=== PATIENT | male | born 1960 | race Caucasian/White ===

== ENCOUNTER 2018-02-13 09:49 | Inpatient (IN) | payer OTHER ==
[2018-02-13 11:12] VITALS: BMI 22.3
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
[2018-02-13] MEDS ORDERED: P-EPHED 60MG/TRIPROLIDI 2.5MG TABLET PO PRN (13:26)
[2018-02-13] MEDS ORDERED: MAGNESIUM HYDROX 2400MG/30ML ORAL SUSPENSION 30 ML CUP PO PRN (13:26)
[2018-02-13] MEDS ORDERED: ACETAMINOPHEN 325 MG TABLET (FP) PO PRN (13:26)
[2018-02-13] MEDS ORDERED: MAGNESIUM CITRATE 300 ML BOTTLE PO PRN (13:26)
[2018-02-13] MEDS ORDERED: IBUPROFEN 400 MG TABLET (FP) PO PRN (13:26)
[2018-02-13] MEDS ORDERED: MENTHOL/PHENOL 1 EACH UD MM PRN (13:26)
[2018-02-13] MEDS ORDERED: guaiFENesin/D-METHORPHAN HB 10 ML UNIT-DOSE CUPS PO PRN (13:26)
[2018-02-13] MEDS ORDERED: LOPERAMIDE HCL 2 MG CAPSULE PO PRN (13:26)
[2018-02-13] MEDS ORDERED: MAG HYDROX/AL HYDROX/SIMETH 30 ML UNIT-DOSE CUP PO PRN (13:26)
[2018-02-13] MEDS ORDERED: sitaGLIPtin PHOSPHATE 25 MG TABLET (FP) PO ONE (15:14)
[2018-02-13] MEDS: chlordiazePOXIDE HCL 10 MG CAPSULE PO PRN (15:27)
[2018-02-13] MEDS: BACITRACIN/POLYMYXIN B SULFATE 15 GM TUBE TP SCH ×2 (15:28→22:23)
--- NOTE | 2018-02-13 15:44 | EKG ---
Test Reason : Blood Pressure : / mmHG Vent. Rate : 051 BPM Atrial Rate : 051 BPM P-R Int : 132 ms QRS Dur : 086 ms QT Int : 434 ms P-R-T Axes : 101 -04 002 degrees QTc Int : 400 ms SINUS BRADYCARDIA MINIMAL VOLTAGE CRITERIA FOR LVH, MAY BE NORMAL VARIANT NONSPECIFIC T WAVE ABNORMALITY ABNORMAL ECG NO PREVIOUS ECGS AVAILABLE Confirmed by CARISSA GOMEZ MD ([id number]) on 02/13/2018 3:44:38 PM Referred By: Confirmed By:CARISSA GOMEZ MD
--- NOTE | 2018-02-13 16:03 | CONSULT ---
[facility] Psychiatric Consult - Data Date of interview: 02/13/18 Admission source: [facility] Identifying data: Patient is a 58 year old single male, without children, unemployed, domiciled, and is supported by SSI benefits. This is one of multiple admissions for patient. Patient admitted to for alcohol and benzodiazepine dependence. Substance Abuse History: - Smoking Cessation. Smoking history: Current every day smoker. Have you smoked in the past 12 months: Yes. Aproximately how many cigarettes per day: 5. Hx Chewing Tobacco Use: No. Initiated information on smoking cessation: No. - Substances Abused. Alcohol-rum. Route: Oral. Frequency: Daily. Amount used: 1 pt. Age of first use: 18. Date of Last Use: 02/12/18. Xanax. Route: Oral. Frequency: Daily. Amount used: 8 mg. Age of first use: 53. Date of Last Use: 02/12/18 Medical History: diabetes, Hep C Psychiatric History: Patient reports one psychiatric hospitalization at [facility] 15 years ago. Current Outpatient psychiatric care is provided at [facility]. Pharmacy claims reviewed (prescriptions sent on 02/01 + 02/11). Patient is prescribed lexapro 20mg + Buspar 10mg TID + Seroquel 100mg + Ambien 10mg. He reports sub-opitmal adherence to his medication regime. Patient is also enrolled at the methadone program in [facility]. He is on methadone maintenance of 170mg daily. Patient reports one suicide attempt 20 years ago via overdose. He denies current thought or urges to hurt himself. Patient currently reports feeling sad, anxiety, and difficulty sleeping. Physical/Sexual Abuse/Trauma History: denies. Mental Status Exam - Mental Status Exam Alert and Oriented to: Time, Place, Person Cognitive Function: Good Patient Appearance: Well Groomed Mood: Euthymic Affect: Appropriate Patient Behavior: Appropriate, Cooperative Speech Pattern: Appropriate Voice Loudness: Normal Thought Process: Intact, Goal Oriented Thought Disorder: Not Present Hallucinations: Denies Suicidal Ideation: Denies Homicidal Ideation: Denies Insight/Judgement: Poor Sleep: Poorly Appetite: Fair Muscle strength/Tone: Normal Gait/Station: Normal Psychiatric Findings - Problem List ([place] 1, 2,3) (1) Opioid dependence on agonist therapy Current Visit: Yes Status: Acute (2) Sedative, hypnotic or anxiolytic dependence with withdrawal, uncomplicated Current Visit: Yes Status: Acute (3) Alcohol dependence with uncomplicated withdrawal Current Visit: Yes Status: Acute (4) Substance induced mood disorder Current Visit: Yes Status: Acute (5) Substance-induced sleep disorder Current Visit: Yes Status: Acute - Initial Treatment Plan Initial Treatment Plan: Psychoeducation provided. Detoxification in progress. Lexapro 20mg daily + Buspar 10mg BID + Seroquel 50mg (reduce dosage) + Ambien 5mg (reduce dosage). Benefits and side effects discussed. Verbal consent given.
[2018-02-13] MEDS ORDERED: INSULIN (NOVOLOG) ASPART 100 UNITS/ML 10ML VIAL ONE ×2 (16:45→21:55)
[2018-02-13] MEDS: INSULIN SLIDING SCALE (NOVOLOG) 1 VIAL SQ SCH ×2 (17:07→22:23)
[2018-02-13] MEDS ORDERED: MELATONIN 5 MG TABLETS PO PRN (22:00)
[2018-02-13 22:09] LABS: URINE APPEARANCE CLEAR; URINE BILIRUBIN NEGATIVE (<2.0 mg/dL); URINE COLOR YELLOW; URINE GLUCOSE (UA) 3+ (NEGATIVE); URINE KETONE NEGATIVE (NEGATIVE); URINE LEUK ESTERASE 1+ (NEGATIVE); URINE NITRITE NEGATIVE (NEGATIVE); URINE PROTEIN 1+ (NEGATIVE); URINE UROBILINOGEN NEGATIVE mg/dL (0.2-1.0)
[2018-02-13] MEDS: ZOLPIDEM TARTRATE 5 MG TABLET PO PRN (22:22)
[2018-02-13] MEDS: QUEtiapine FUMARATE 50 MG TABLET PO SCH (22:22)
[2018-02-13] MEDS: THIAMINE HCL 100 MG TABLET (FP) PO SCH (22:22)
[2018-02-13] MEDS: chlordiazePOXIDE HCL 25 MG CAPSULE PO SCH (22:22)
[2018-02-13] MEDS: busPIRone HCL 10 MG TABLET (FP) PO SCH (22:23)
[2018-02-13 22:57] LABS: EPI CELLS RARE /HPF (FEW)
[2018-02-14] MEDS ORDERED: METHADONE HCL 10 MG TABLET ONE (04:35)
[2018-02-14] MEDS ORDERED: METHADONE HCL 40 MG DISPERSABLE TABLET ONE (04:36)
[2018-02-14] MEDS: chlordiazePOXIDE HCL 25 MG CAPSULE PO SCH ×4 (05:30→22:22)
[2018-02-14] MEDS: METHADONE 160 MG, METHADONE 10 MG PO SCH (05:31)
[2018-02-14] MEDS ORDERED: METHADONE HCL 40 MG DISPERSABLE TABLET PO SCH (06:00)
[2018-02-14] MEDS: sitaGLIPtin PHOSPHATE 25 MG TABLET (FP) PO SCH (06:17)
[2018-02-14] MEDS: INSULIN SLIDING SCALE (NOVOLOG) 1 VIAL SQ SCH ×4 (06:17→21:56)
[2018-02-14] MEDS ORDERED: ESCITALOPRAM OXALATE 10 MG TABLET (FP) PO SCH (10:00)
[2018-02-14] MEDS: BACITRACIN/POLYMYXIN B SULFATE 15 GM TUBE TP SCH ×2 (10:11→22:21)
[2018-02-14] MEDS: NICOTINE 7 MG/24 HOURS TOPICAL PATCH TD SCH (10:11)
[2018-02-14] MEDS: ESCITALOPRAM OXALATE 10 MG TABLET (FP) PO SCH (10:11)
[2018-02-14] MEDS: PRENATAL VITAMINS W/ FOLIC ACID TABLET (FP) PO SCH (10:11)
[2018-02-14] MEDS: busPIRone HCL 10 MG TABLET (FP) PO SCH ×2 (10:11→22:22)
[2018-02-14 11:21] LABS: HEMOGLOBIN 10.3 GM/dL (11.7-16.9); MCH 31.3 pg (25.7-33.7); MCHC 33.1 g/dl (32.0-35.9); MEAN CELL VOLUME 94.6 fl (80-96); MEAN PLT VOLUME 9.1 fl (7.5-11.1); PLATELET COUNT 161 K/MM3 (134-434); RBC 3.28 M/mm3 (4.00-5.60); RDW 13.8 % (11.9-15.9); WHITE BLOOD COUNT 7.8 K/mm3 (4.0-10.0)
--- NOTE | 2018-02-14 11:21 | PN ---
S CIWA - CIWA Score Nausea/Vomitin Muscle Tremors: 3 Anxiety: 2 Agitation: 2 Paroxysmal Sweats: 3 Orientation: 0-Oriented Tacttile Disturbances: 2-Mild Itch/Numbness/Burn Auditory Disturbances: 0-None Visual Disturbances: 0-None Headache: 2-Mild CIWA-Ar Total Score: 17 BHS Progress Note (SOAP) Subjective: Muscle aches, tremors,interrupted sleep Objective: 02/14/18 11:20 Vital Signs - 8 hr 02/14/18 02/14/18 03:30 06:21 Temperature 97.8 F Pulse Rate 59 L Respiratory 18 16 Rate Blood Pressure 143/72 Laboratory Last Values POC Glucometer 165 UNITS (80-120) 02/14/18 05:32 Urine Color Yellow 02/13/18 15:26 Urine Appearance Clear 02/13/18 15:26 Urine pH 5.0 (5.0-8.0) D 02/13/18 15:26 Ur Specific [place] 1.013 (1.001-1.035) 02/13/18 15:26 Urine Protein 1+ (NEGATIVE) H 02/13/18 15:26 Urine Glucose (UA) 3+ (NEGATIVE) H 02/13/18 15:26 Urine Ketones Negative (NEGATIVE) 02/13/18 15:26 Urine Blood Negative (NEGATIVE) 02/13/18 15:26 Urine Nitrite Negative (NEGATIVE) 02/13/18 15:26 Urine Bilirubin Negative (<2.0 mg/dL) 02/13/18 15:26 Urine Urobilinogen Negative mg/dL (0.2-1.0) 02/13/18 15:26 Ur Leukocyte Esterase 1+ (NEGATIVE) H 02/13/18 15:26 Urine WBC (Auto) 33 /hpf (3-5) 02/13/18 15:26 Urine RBC (Auto) 4 /hpf (0-3) 02/13/18 15:26 Ur Epithelial Cells Rare /HPF (FEW) 02/13/18 15:26 HIV 1&2 Antibody Screen Negative 02/13/18 12:15 HIV P24 Antigen Negative 02/13/18 12:15 UA noted Labs pending Assessment: 02/14/18 11:20 Withdrawal sx Plan: Continue detox
[2018-02-14 11:35] LABS: ALBUMIN 3.5 g/dl (3.4-5.0); ALK PHOS 97 U/L (45-117); ANION GAP 4 MMOL/L (8-16); BILIRUBIN,TOTAL 0.4 mg/dL (0.2-1); BLOOD UREA NITROGEN 26 mg/dL (7-18); CHLORIDE 107 mmol/L (98-107); CO2 29 mmol/L (21-32); CREATININE 1.9 mg/dL (0.55-1.3); GLUCOSE,RANDOM 279 mg/dL (74-106); POTASSIUM 4.6 mmol/L (3.5-5.1); SGOT/AST 29 U/L (15-37); SGPT/ALT 33 U/L (13-61); SODIUM 140 mmol/L (136-145)
[2018-02-14] MEDS ORDERED: INSULIN (NOVOLOG) ASPART 100 UNITS/ML 10ML VIAL ONE ×2 (11:59→16:45)
[2018-02-14] MEDS: chlordiazePOXIDE HCL 10 MG CAPSULE PO PRN (14:37)
[2018-02-14] MEDS: THIAMINE HCL 100 MG TABLET (FP) PO SCH (22:21)
[2018-02-14] MEDS: QUEtiapine FUMARATE 50 MG TABLET PO SCH (22:22)
[2018-02-15] MEDS ORDERED: METHADONE HCL 10 MG TABLET ONE (04:10)
[2018-02-15] MEDS ORDERED: METHADONE HCL 40 MG DISPERSABLE TABLET ONE (04:11)
[2018-02-15] MEDS: hydrOXYzine PAMOATE 25 MG CAPSULE (FP) PO PRN (04:28)
[2018-02-15] MEDS: chlordiazePOXIDE HCL 25 MG CAPSULE PO SCH ×3 (05:16→17:02)
[2018-02-15] MEDS: METHADONE 160 MG, METHADONE 10 MG PO SCH (05:16)
[2018-02-15] MEDS: INSULIN SLIDING SCALE (NOVOLOG) 1 VIAL SQ SCH ×4 (07:10→22:06)
[2018-02-15] MEDS: sitaGLIPtin PHOSPHATE 25 MG TABLET (FP) PO SCH (07:10)
[2018-02-15] MEDS ORDERED: INSULIN (NOVOLOG) ASPART 100 UNITS/ML 10ML VIAL ONE ×4 (07:18→21:50)
[2018-02-15] MEDS: BACITRACIN/POLYMYXIN B SULFATE 15 GM TUBE TP SCH ×2 (10:05→22:06)
[2018-02-15] MEDS: busPIRone HCL 10 MG TABLET (FP) PO SCH ×2 (10:05→22:06)
[2018-02-15] MEDS: ESCITALOPRAM OXALATE 10 MG TABLET (FP) PO SCH (10:05)
[2018-02-15] MEDS: PRENATAL VITAMINS W/ FOLIC ACID TABLET (FP) PO SCH (10:06)
[2018-02-15] MEDS: NICOTINE 7 MG/24 HOURS TOPICAL PATCH TD SCH (10:06)
--- NOTE | 2018-02-15 16:27 | PN ---
S CIWA - CIWA Score Nausea/Vomitin Muscle Tremors: 4-Moderate,w/Arms Extend Anxiety: 4-Mod. Anxious/Guarded Agitation: 4-Moderately Restless Paroxysmal Sweats: 3 Orientation: 0-Oriented Tacttile Disturbances: 0-None Auditory Disturbances: 0-None Visual Disturbances: 0-None Headache: 1-Very Mild CIWA-Ar Total Score: 18 BHS Progress Note (SOAP) Subjective: Tremor, interrupted sleep, anxious Objective: 02/15/18 16:22 Last Vital Signs Temp Pulse Resp BP Pulse Ox 97.0 F L 56 L 18 120/68 02/15/18 14:54 02/15/18 14:54 02/15/18 14:54 02/15/18 14:54 Laboratory Tests 02/13/18 02/13/18 02/13/18 12:11 12:15 15:26 WBC RBC Hgb Hct MCV MCH MCHC RDW Plt Count MPV Sodium Potassium Chloride Carbon Dioxide Anion Gap BUN Creatinine Creat Clearance w eGFR POC Glucometer 278 Random Glucose Calcium Total Bilirubin AST ALT Alkaline Phosphatase Total Protein Albumin Urine Color Yellow Urine Appearance Clear Urine pH 5.0 D Ur Specific [place] 1.013 Urine Protein 1+ H Urine Glucose (UA) 3+ H Urine Ketones Negative Urine Blood Negative Urine Nitrite Negative Urine Bilirubin Negative Urine Urobilinogen Negative Ur Leukocyte Esterase 1+ H Urine WBC (Auto) 33 Urine RBC (Auto) 4 Ur Epithelial Cells Rare RPR Titer HIV 1&2 Antibody Screen Negative HIV P24 Antigen Negative 02/13/18 02/13/18 02/14/18 16:24 21:41 05:32 WBC RBC Hgb Hct MCV MCH MCHC RDW Plt Count MPV Sodium Potassium Chloride Carbon Dioxide Anion Gap BUN Creatinine Creat Clearance w eGFR POC Glucometer 237 277 165 Random Glucose Calcium Total Bilirubin AST ALT Alkaline Phosphatase Total Protein Albumin Urine Color Urine Appearance Urine pH Ur Specific [place] Urine Protein Urine Glucose (UA) Urine Ketones Urine Blood Urine Nitrite Urine Bilirubin Urine Urobilinogen Ur Leukocyte Esterase Urine WBC (Auto) Urine RBC (Auto) Ur Epithelial Cells RPR Titer HIV 1&2 Antibody Screen HIV P24 Antigen 02/14/18 02/14/18 02/14/18 06:00 06:00 06:00 WBC 7.8 RBC 3.28 L Hgb 10.3 L Hct 31.0 L D MCV 94.6 MCH 31.3 MCHC 33.1 RDW 13.8 Plt Count 161 D MPV 9.1 Sodium 140 Potassium 4.6 Chloride 107 Carbon Dioxide 29 Anion Gap 4 L BUN 26 H Creatinine 1.9 H Creat Clearance w eGFR 36.59 POC Glucometer Random Glucose 279 H Calcium 9.0 Total Bilirubin 0.4 AST 29 ALT 33 Alkaline Phosphatase 97 Total Protein 7.0 Albumin 3.5 Urine Color Urine Appearance Urine pH Ur Specific [place] Urine Protein Urine Glucose (UA) Urine Ketones Urine Blood Urine Nitrite Urine Bilirubin Urine Urobilinogen Ur Leukocyte Esterase Urine WBC (Auto) Urine RBC (Auto) Ur Epithelial Cells RPR Titer Nonreactive HIV 1&2 Antibody Screen HIV P24 Antigen 02/14/18 02/14/18 02/14/18 11:53 16:21 21:46 WBC RBC Hgb Hct MCV MCH MCHC RDW Plt Count MPV Sodium Potassium Chloride Carbon Dioxide Anion Gap BUN Creatinine Creat Clearance w eGFR POC Glucometer 348 348 125 Random Glucose Calcium Total Bilirubin AST ALT Alkaline Phosphatase Total Protein Albumin Urine Color Urine Appearance Urine pH Ur Specific [place] Urine Protein Urine Glucose (UA) Urine Ketones Urine Blood Urine Nitrite Urine Bilirubin Urine Urobilinogen Ur Leukocyte Esterase Urine WBC (Auto) Urine RBC (Auto) Ur Epithelial Cells RPR Titer HIV 1&2 Antibody Screen HIV P24 Antigen 02/15/18 02/15/18 05:18 11:46 WBC RBC Hgb Hct MCV MCH MCHC RDW Plt Count MPV Sodium Potassium Chloride Carbon Dioxide Anion Gap BUN Creatinine Creat Clearance w eGFR POC Glucometer 203 298 Random Glucose Calcium Total Bilirubin AST ALT Alkaline Phosphatase Total Protein Albumin Urine Color Urine Appearance Urine pH Ur Specific [place] Urine Protein Urine Glucose (UA) Urine Ketones Urine Blood Urine Nitrite Urine Bilirubin Urine Urobilinogen Ur Leukocyte Esterase Urine WBC (Auto) Urine RBC (Auto) Ur Epithelial Cells RPR Titer HIV 1&2 Antibody Screen HIV P24 Antigen Labs reviewed: hyperglycemia, bun 26, creatinine 1.9, abnormal UA Assessment: 02/15/18 16:25 Withdrawal sx Noted with RAAD, abnormal UA and hyperglycemia Plan: Continue detox RAAD: encouraged PO water intake, repeat BMP Abnormal UA: repeat UA Hyperglycemia r/t DMT2: increase januvia to 50mg PO daily, encourage adherence to diabetic diet and medication
[2018-02-15] MEDS: ZOLPIDEM TARTRATE 5 MG TABLET PO PRN (22:06)
[2018-02-15] MEDS: chlordiazePOXIDE 5 MG CAPSULE PO SCH (22:06)
[2018-02-15] MEDS: QUEtiapine FUMARATE 50 MG TABLET PO SCH (22:06)
[2018-02-15] MEDS: THIAMINE HCL 100 MG TABLET (FP) PO SCH (22:06)
[2018-02-15] MEDS: chlordiazePOXIDE HCL 10 MG CAPSULE PO PRN (23:49)
[2018-02-16] MEDS: hydrOXYzine PAMOATE 25 MG CAPSULE (FP) PO PRN ×2 (03:34→12:41)
[2018-02-16] MEDS ORDERED: METHADONE HCL 10 MG TABLET ONE (04:45)
[2018-02-16] MEDS ORDERED: METHADONE HCL 40 MG DISPERSABLE TABLET ONE (04:45)
[2018-02-16] MEDS: METHADONE 160 MG, METHADONE 10 MG PO SCH (05:14)
[2018-02-16] MEDS: chlordiazePOXIDE 5 MG CAPSULE PO SCH ×3 (05:15→17:30)
[2018-02-16] MEDS ORDERED: INSULIN (NOVOLOG) ASPART 100 UNITS/ML 10ML VIAL ONE ×3 (07:01→17:05)
[2018-02-16] MEDS: INSULIN SLIDING SCALE (NOVOLOG) 1 VIAL SQ SCH ×4 (07:02→21:50)
[2018-02-16] MEDS: sitaGLIPtin PHOSPHATE 50 MG TABLET PO SCH (07:51)
[2018-02-16] MEDS: BACITRACIN/POLYMYXIN B SULFATE 15 GM TUBE TP SCH ×2 (10:08→22:18)
[2018-02-16] MEDS: ESCITALOPRAM OXALATE 10 MG TABLET (FP) PO SCH (10:08)
[2018-02-16] MEDS: NICOTINE 7 MG/24 HOURS TOPICAL PATCH TD SCH (10:09)
[2018-02-16] MEDS: PRENATAL VITAMINS W/ FOLIC ACID TABLET (FP) PO SCH (10:09)
[2018-02-16] MEDS: busPIRone HCL 10 MG TABLET (FP) PO SCH ×2 (10:09→22:17)
[2018-02-16 10:35] LABS: ANION GAP 9 MMOL/L (8-16); BLOOD UREA NITROGEN 31 mg/dL (7-18); CALCIUM 9.5 mg/dL (8.5-10.1); CHLORIDE 106 mmol/L (98-107); CO2 27 mmol/L (21-32); CREATININE 1.6 mg/dL (0.55-1.3); GLUCOSE,RANDOM 212 mg/dL (74-106); POTASSIUM 4.6 mmol/L (3.5-5.1); SODIUM 142 mmol/L (136-145)
--- NOTE | 2018-02-16 12:04 | PN ---
BHS Progress Note (SOAP) Subjective: Interrupted sleep, tremor, chills Objective: 02/16/18 11:48 Last Vital Signs Temp Pulse Resp BP Pulse Ox 97.6 F 68 18 100/68 02/16/18 09:42 02/16/18 09:42 02/16/18 09:42 02/16/18 09:42 Laboratory Tests 02/13/18 02/13/18 02/13/18 12:11 12:15 15:26 WBC RBC Hgb Hct MCV MCH MCHC RDW Plt Count MPV Sodium Potassium Chloride Carbon Dioxide Anion Gap BUN Creatinine Creat Clearance w eGFR POC Glucometer 278 Random Glucose Calcium Total Bilirubin AST ALT Alkaline Phosphatase Total Protein Albumin Urine Color Yellow Urine Appearance Clear Urine pH 5.0 D Ur Specific [place] 1.013 Urine Protein 1+ H Urine Glucose (UA) 3+ H Urine Ketones Negative Urine Blood Negative Urine Nitrite Negative Urine Bilirubin Negative Urine Urobilinogen Negative Ur Leukocyte Esterase 1+ H Urine WBC (Auto) 33 Urine RBC (Auto) 4 Ur Epithelial Cells Rare RPR Titer HIV 1&2 Antibody Screen Negative HIV P24 Antigen Negative 02/13/18 02/13/18 02/14/18 16:24 21:41 05:32 WBC RBC Hgb Hct MCV MCH MCHC RDW Plt Count MPV Sodium Potassium Chloride Carbon Dioxide Anion Gap BUN Creatinine Creat Clearance w eGFR POC Glucometer 237 277 165 Random Glucose Calcium Total Bilirubin AST ALT Alkaline Phosphatase Total Protein Albumin Urine Color Urine Appearance Urine pH Ur Specific [place] Urine Protein Urine Glucose (UA) Urine Ketones Urine Blood Urine Nitrite Urine Bilirubin Urine Urobilinogen Ur Leukocyte Esterase Urine WBC (Auto) Urine RBC (Auto) Ur Epithelial Cells RPR Titer HIV 1&2 Antibody Screen HIV P24 Antigen 02/14/18 02/14/18 02/14/18 06:00 06:00 06:00 WBC 7.8 RBC 3.28 L Hgb 10.3 L Hct 31.0 L D MCV 94.6 MCH 31.3 MCHC 33.1 RDW 13.8 Plt Count 161 D MPV 9.1 Sodium 140 Potassium 4.6 Chloride 107 Carbon Dioxide 29 Anion Gap 4 L BUN 26 H Creatinine 1.9 H Creat Clearance w eGFR 36.59 POC Glucometer Random Glucose 279 H Calcium 9.0 Total Bilirubin 0.4 AST 29 ALT 33 Alkaline Phosphatase 97 Total Protein 7.0 Albumin 3.5 Urine Color Urine Appearance Urine pH Ur Specific [place] Urine Protein Urine Glucose (UA) Urine Ketones Urine Blood Urine Nitrite Urine Bilirubin Urine Urobilinogen Ur Leukocyte Esterase Urine WBC (Auto) Urine RBC (Auto) Ur Epithelial Cells RPR Titer Nonreactive HIV 1&2 Antibody Screen HIV P24 Antigen 02/14/18 02/14/18 02/14/18 11:53 16:21 21:46 WBC RBC Hgb Hct MCV MCH MCHC RDW Plt Count MPV Sodium Potassium Chloride Carbon Dioxide Anion Gap BUN Creatinine Creat Clearance w eGFR POC Glucometer 348 348 125 Random Glucose Calcium Total Bilirubin AST ALT Alkaline Phosphatase Total Protein Albumin Urine Color Urine Appearance Urine pH Ur Specific [place] Urine Protein Urine Glucose (UA) Urine Ketones Urine Blood Urine Nitrite Urine Bilirubin Urine Urobilinogen Ur Leukocyte Esterase Urine WBC (Auto) Urine RBC (Auto) Ur Epithelial Cells RPR Titer HIV 1&2 Antibody Screen HIV P24 Antigen 02/15/18 02/15/18 02/15/18 05:18 11:46 16:22 WBC RBC Hgb Hct MCV MCH MCHC RDW Plt Count MPV Sodium Potassium Chloride Carbon Dioxide Anion Gap BUN Creatinine Creat Clearance w eGFR POC Glucometer 203 298 342 Random Glucose Calcium Total Bilirubin AST ALT Alkaline Phosphatase Total Protein Albumin Urine Color Urine Appearance Urine pH Ur Specific [place] Urine Protein Urine Glucose (UA) Urine Ketones Urine Blood Urine Nitrite Urine Bilirubin Urine Urobilinogen Ur Leukocyte Esterase Urine WBC (Auto) Urine RBC (Auto) Ur Epithelial Cells RPR Titer HIV 1&2 Antibody Screen HIV P24 Antigen 02/15/18 02/16/18 02/16/18 21:22 06:59 07:00 WBC RBC Hgb Hct MCV MCH MCHC RDW Plt Count MPV Sodium 142 Potassium 4.6 Chloride 106 Carbon Dioxide 27 Anion Gap 9 BUN 31 H Creatinine 1.6 H Creat Clearance w eGFR 44.62 POC Glucometer 210 237 Random Glucose 212 H Calcium 9.5 Total Bilirubin AST ALT Alkaline Phosphatase Total Protein Albumin Urine Color Urine Appearance Urine pH Ur Specific [place] Urine Protein Urine Glucose (UA) Urine Ketones Urine Blood Urine Nitrite Urine Bilirubin Urine Urobilinogen Ur Leukocyte Esterase Urine WBC (Auto) Urine RBC (Auto) Ur Epithelial Cells RPR Titer HIV 1&2 Antibody Screen HIV P24 Antigen 02/16/18 11:01 WBC RBC Hgb Hct MCV MCH MCHC RDW Plt Count MPV Sodium Potassium Chloride Carbon Dioxide Anion Gap BUN Creatinine Creat Clearance w eGFR POC Glucometer 263 Random Glucose Calcium Total Bilirubin AST ALT Alkaline Phosphatase Total Protein Albumin Urine Color Urine Appearance Urine pH Ur Specific [place] Urine Protein Urine Glucose (UA) Urine Ketones Urine Blood Urine Nitrite Urine Bilirubin Urine Urobilinogen Ur Leukocyte Esterase Urine WBC (Auto) Urine RBC (Auto) Ur Epithelial Cells RPR Titer HIV 1&2 Antibody Screen HIV P24 Antigen Labs reviewed: serum creatinine 1.6, bun 31, increased glucose, abnormal UA Assessment: 02/16/18 12:04 Withdrawal sx Noted with RAAD, hyperglycemia r/t DMT2 and abnormal UA Plan: Continue detox RAAD:encouraged PO water intake, monitor kidney function Hyperglycemia r/t DMT2: continue present regimen, continue to monitor Abnormal UA: encouraged to drink more water, follow up on repeated UA result
[2018-02-16] MEDS: THIAMINE HCL 100 MG TABLET (FP) PO SCH (22:17)
[2018-02-16] MEDS: chlordiazePOXIDE HCL 10 MG CAPSULE PO SCH (22:17)
[2018-02-16] MEDS: QUEtiapine FUMARATE 50 MG TABLET PO SCH (22:17)
[2018-02-17] MEDS: hydrOXYzine PAMOATE 25 MG CAPSULE (FP) PO PRN (00:50)
[2018-02-17] MEDS ORDERED: METHADONE HCL 10 MG TABLET ONE (04:12)
[2018-02-17] MEDS ORDERED: METHADONE HCL 40 MG DISPERSABLE TABLET ONE (04:13)
[2018-02-17] MEDS: METHADONE 160 MG, METHADONE 10 MG PO SCH (05:25)
[2018-02-17] MEDS: chlordiazePOXIDE HCL 10 MG CAPSULE PO SCH ×3 (05:25→17:18)
[2018-02-17] MEDS: sitaGLIPtin PHOSPHATE 50 MG TABLET PO SCH (07:08)
[2018-02-17] MEDS: INSULIN SLIDING SCALE (NOVOLOG) 1 VIAL SQ SCH ×3 (07:08→17:20)
[2018-02-17] MEDS ORDERED: INSULIN (NOVOLOG) ASPART 100 UNITS/ML 10ML VIAL ONE (07:11)
[2018-02-17] MEDS: BACITRACIN/POLYMYXIN B SULFATE 15 GM TUBE TP SCH (10:07)
[2018-02-17] MEDS: busPIRone HCL 10 MG TABLET (FP) PO SCH (10:07)
[2018-02-17] MEDS: PRENATAL VITAMINS W/ FOLIC ACID TABLET (FP) PO SCH (10:07)
[2018-02-17] MEDS: ESCITALOPRAM OXALATE 10 MG TABLET (FP) PO SCH (10:07)
[2018-02-17] MEDS: NICOTINE 7 MG/24 HOURS TOPICAL PATCH TD SCH (10:08)
--- NOTE | 2018-02-17 11:35 | DS ---
[facility] Detox Discharge Summary Admission Date: 02/13/18 Discharge Date: 02/17/18 - History Present History: Alcohol Dependence, Cannabis Dependence, Opioid Dependence, Sedative Dependence Additional Comments: Patient for discharge today. Awaiting verification for acceptance to [facility] today. Noted with hypotension: asymptomatic, encouraged PO water intake Pertinent Past History: DMT2 - Physical Exam Results Vital Signs: Vital Signs Temperature 96.8 F L 02/17/18 09:22 Pulse Rate 87 02/17/18 09:22 Respiratory Rate 16 02/17/18 09:22 Blood Pressure 97/66 02/17/18 09:22 O2 Sat by Pulse Oximetry (%) Pertinent Admission Physical Exam Findings: Withdrawal sxs Laboratory Tests 02/13/18 02/13/18 02/13/18 12:11 12:15 15:26 WBC RBC Hgb Hct MCV MCH MCHC RDW Plt Count MPV Sodium Potassium Chloride Carbon Dioxide Anion Gap BUN Creatinine Creat Clearance w eGFR POC Glucometer 278 Random Glucose Calcium Total Bilirubin AST ALT Alkaline Phosphatase Total Protein Albumin Urine Color Yellow Urine Appearance Clear Urine pH 5.0 D Ur Specific [place] 1.013 Urine Protein 1+ H Urine Glucose (UA) 3+ H Urine Ketones Negative Urine Blood Negative Urine Nitrite Negative Urine Bilirubin Negative Urine Urobilinogen Negative Ur Leukocyte Esterase 1+ H Urine WBC (Auto) 33 Urine RBC (Auto) 4 Ur Epithelial Cells Rare RPR Titer HIV 1&2 Antibody Screen Negative HIV P24 Antigen Negative 02/13/18 02/13/18 02/14/18 16:24 21:41 05:32 WBC RBC Hgb Hct MCV MCH MCHC RDW Plt Count MPV Sodium Potassium Chloride Carbon Dioxide Anion Gap BUN Creatinine Creat Clearance w eGFR POC Glucometer 237 277 165 Random Glucose Calcium Total Bilirubin AST ALT Alkaline Phosphatase Total Protein Albumin Urine Color Urine Appearance Urine pH Ur Specific [place] Urine Protein Urine Glucose (UA) Urine Ketones Urine Blood Urine Nitrite Urine Bilirubin Urine Urobilinogen Ur Leukocyte Esterase Urine WBC (Auto) Urine RBC (Auto) Ur Epithelial Cells RPR Titer HIV 1&2 Antibody Screen HIV P24 Antigen 02/14/18 02/14/18 02/14/18 06:00 06:00 06:00 WBC 7.8 RBC 3.28 L Hgb 10.3 L Hct 31.0 L D MCV 94.6 MCH 31.3 MCHC 33.1 RDW 13.8 Plt Count 161 D MPV 9.1 Sodium 140 Potassium 4.6 Chloride 107 Carbon Dioxide 29 Anion Gap 4 L BUN 26 H Creatinine 1.9 H Creat Clearance w eGFR 36.59 POC Glucometer Random Glucose 279 H Calcium 9.0 Total Bilirubin 0.4 AST 29 ALT 33 Alkaline Phosphatase 97 Total Protein 7.0 Albumin 3.5 Urine Color Urine Appearance Urine pH Ur Specific [place] Urine Protein Urine Glucose (UA) Urine Ketones Urine Blood Urine Nitrite Urine Bilirubin Urine Urobilinogen Ur Leukocyte Esterase Urine WBC (Auto) Urine RBC (Auto) Ur Epithelial Cells RPR Titer Nonreactive HIV 1&2 Antibody Screen HIV P24 Antigen 02/14/18 02/14/18 02/14/18 11:53 16:21 21:46 WBC RBC Hgb Hct MCV MCH MCHC RDW Plt Count MPV Sodium Potassium Chloride Carbon Dioxide Anion Gap BUN Creatinine Creat Clearance w eGFR POC Glucometer 348 348 125 Random Glucose Calcium Total Bilirubin AST ALT Alkaline Phosphatase Total Protein Albumin Urine Color Urine Appearance Urine pH Ur Specific [place] Urine Protein Urine Glucose (UA) Urine Ketones Urine Blood Urine Nitrite Urine Bilirubin Urine Urobilinogen Ur Leukocyte Esterase Urine WBC (Auto) Urine RBC (Auto) Ur Epithelial Cells RPR Titer HIV 1&2 Antibody Screen HIV P24 Antigen 02/15/18 02/15/18 02/15/18 05:18 11:46 16:22 WBC RBC Hgb Hct MCV MCH MCHC RDW Plt Count MPV Sodium Potassium Chloride Carbon Dioxide Anion Gap BUN Creatinine Creat Clearance w eGFR POC Glucometer 203 298 342 Random Glucose Calcium Total Bilirubin AST ALT Alkaline Phosphatase Total Protein Albumin Urine Color Urine Appearance Urine pH Ur Specific [place] Urine Protein Urine Glucose (UA) Urine Ketones Urine Blood Urine Nitrite Urine Bilirubin Urine Urobilinogen Ur Leukocyte Esterase Urine WBC (Auto) Urine RBC (Auto) Ur Epithelial Cells RPR Titer HIV 1&2 Antibody Screen HIV P24 Antigen 02/15/18 02/16/18 02/16/18 21:22 06:59 07:00 WBC RBC Hgb Hct MCV MCH MCHC RDW Plt Count MPV Sodium 142 Potassium 4.6 Chloride 106 Carbon Dioxide 27 Anion Gap 9 BUN 31 H Creatinine 1.6 H Creat Clearance w eGFR 44.62 POC Glucometer 210 237 Random Glucose 212 H Calcium 9.5 Total Bilirubin AST ALT Alkaline Phosphatase Total Protein Albumin Urine Color Urine Appearance Urine pH Ur Specific [place] Urine Protein Urine Glucose (UA) Urine Ketones Urine Blood Urine Nitrite Urine Bilirubin Urine Urobilinogen Ur Leukocyte Esterase Urine WBC (Auto) Urine RBC (Auto) Ur Epithelial Cells RPR Titer HIV 1&2 Antibody Screen HIV P24 Antigen 02/16/18 02/16/18 02/16/18 11:01 16:18 20:53 WBC RBC Hgb Hct MCV MCH MCHC RDW Plt Count MPV Sodium Potassium Chloride Carbon Dioxide Anion Gap BUN Creatinine Creat Clearance w eGFR POC Glucometer 263 320 182 Random Glucose Calcium Total Bilirubin AST ALT Alkaline Phosphatase Total Protein Albumin Urine Color Urine Appearance Urine pH Ur Specific [place] Urine Protein Urine Glucose (UA) Urine Ketones Urine Blood Urine Nitrite Urine Bilirubin Urine Urobilinogen Ur Leukocyte Esterase Urine WBC (Auto) Urine RBC (Auto) Ur Epithelial Cells RPR Titer HIV 1&2 Antibody Screen HIV P24 Antigen 02/17/18 05:24 WBC RBC Hgb Hct MCV MCH MCHC RDW Plt Count MPV Sodium Potassium Chloride Carbon Dioxide Anion Gap BUN Creatinine Creat Clearance w eGFR POC Glucometer 267 Random Glucose Calcium Total Bilirubin AST ALT Alkaline Phosphatase Total Protein Albumin Urine Color Urine Appearance Urine pH Ur Specific [place] Urine Protein Urine Glucose (UA) Urine Ketones Urine Blood Urine Nitrite Urine Bilirubin Urine Urobilinogen Ur Leukocyte Esterase Urine WBC (Auto) Urine RBC (Auto) Ur Epithelial Cells RPR Titer HIV 1&2 Antibody Screen HIV P24 Antigen Labs reviewed - Treatment Hospital Course: Detox Protocol Followed, Detoxed Safely, Responded well, Discharged Condition Good - Medication Discharge Medications: Ambulatory Orders Pregabalin [Lyrica -] 150 mg PO BID 12/28/15 Buspirone HCl [Buspar -] 10 mg PO BID 02/13/18 Escitalopram Oxalate [Lexapro -] 10 mg PO DAILY 02/13/18 Insulin Glargine,Hum.rec.anlog [Lantus Solostar PEN (NF)] 25 units SQ HS Quetiapine Fumarate [Seroquel] 50 mg PO HS 02/13/18 Zolpidem Tartrate [Ambien] 5 mg PO HS PRN 02/13/18 - Diagnosis (1) RAAD (acute kidney injury) Current Visit: Yes Status: Acute (2) Abnormal finding on urinalysis Current Visit: Yes Status: Acute (3) Type 2 diabetes mellitus with hyperglycemia Current Visit: Yes Status: Chronic (4) Cannabis dependence Current Visit: Yes Status: Chronic (5) Alcohol dependence with uncomplicated withdrawal Current Visit: Yes Status: Acute (6) Opioid dependence on agonist therapy Current Visit: Yes Status: Chronic (7) Sedative, hypnotic or anxiolytic dependence with withdrawal, uncomplicated Current Visit: Yes Status: Acute (8) Substance induced mood disorder Current Visit: Yes Status: Acute (9) Substance-induced sleep disorder Current Visit: Yes Status: Acute (10) Neuropathy Current Visit: Yes Status: Chronic (11) Nicotine dependence Current Visit: Yes Status: Chronic Qualifiers: Nicotine product type: cigarettes Substance use status: uncomplicated Qualified Code(s): F17.210 - Nicotine dependence, cigarettes, uncomplicated (12) Hypotension Current Visit: Yes Status: Acute - AMA Did Patient Leave Against Medical Advice: No (F/U with your PCP within 1-2 weeks )
[2018-02-17 17:39] VITALS: BP 98/58; PULSE 54; TEMP 97.1
== END 2018-02-17 17:45 | disposition other institution (70) | DRG 897 ==
LOC: YASAS 09:49 → Y3N 14:16
PROC: HZ2ZZZZ Detoxification Services for Substance Abuse Treatment (ICD-10-PCS; principal; 2018-02-13)
DX: F10.230 Alcohol dependence with withdrawal, uncomplicated (principal); F11.20 Opioid dependence, uncomplicated; F19.282 Other psychoactive substance dependence with psychoactive substance-induced sleep disorder; N17.9 Acute kidney failure, unspecified; F13.230 Sedative, hypnotic or anxiolytic dependence with withdrawal, uncomplicated; F12.20 Cannabis dependence, uncomplicated; F17.210 Nicotine dependence, cigarettes, uncomplicated; F19.24 Other psychoactive substance dependence with psychoactive substance-induced mood disorder; I95.9 Hypotension, unspecified; R82.90 Unspecified abnormal findings in urine; E11.65 Type 2 diabetes mellitus with hyperglycemia; G62.9 Polyneuropathy, unspecified; Z91.013 Allergy to seafood; Z91.011 Allergy to milk products; Z79.4 Long term (current) use of insulin
CPT/HCPCS: 36415; 70160-TC-FY; 80048; 80053; 81003; 81015; 82962; 85027; 86593; 87389; 93005; 93010

== ENCOUNTER 2018-02-17 17:51 | Inpatient (IN) | payer OTHER ==
[2018-02-17] MEDS ORDERED: LOPERAMIDE HCL 2 MG CAPSULE PO PRN (18:59)
[2018-02-17] MEDS ORDERED: P-EPHED 60MG/TRIPROLIDI 2.5MG TABLET PO PRN (18:59)
[2018-02-17] MEDS ORDERED: MENTHOL/PHENOL 1 EACH UD MM PRN (18:59)
[2018-02-17] MEDS ORDERED: guaiFENesin/D-METHORPHAN HB 10 ML UNIT-DOSE CUPS PO PRN (18:59)
[2018-02-17] MEDS ORDERED: IBUPROFEN 400 MG TABLET (FP) PO PRN (18:59)
[2018-02-17] MEDS ORDERED: MAGNESIUM HYDROX 2400MG/30ML ORAL SUSPENSION 30 ML CUP PO PRN (18:59)
[2018-02-17] MEDS ORDERED: MAGNESIUM CITRATE 300 ML BOTTLE PO PRN (18:59)
[2018-02-17] MEDS ORDERED: ACETAMINOPHEN 325 MG TABLET (FP) PO PRN (18:59)
[2018-02-17] MEDS ORDERED: MAG HYDROX/AL HYDROX/SIMETH 30 ML UNIT-DOSE CUP PO PRN (18:59)
[2018-02-17] MEDS ORDERED: NICOTINE POLACRILEX 2 MG GUM BUC PRN (18:59)
--- NOTE | 2018-02-17 19:11 | HP ---
[facility] Rehab Assess/Revision - Admission History Admitted to Rehab from: [facility] Date of Admission to Rehab: 02/17/2018 - Findings Detox History & Physical reviewed: Yes Concur with findings: Yes Comments/Additional Findings: Patient tolerated detox from anxiolytics and alcohol. Inpatient Rehab Admission - Initial Determination Are CD services needed?: Yes Free of communicable disease: Yes Not in need of hospitalization: Yes - Rehab Admission Criteria Previous failed treatment: Yes Poor recovery environment: Yes Comorbidities: Yes Lacks judgement: No Patient is meeting Inpatient Rehab admission criteria:: Yes
[2018-02-17 19:43] VITALS: BMI 22.3
[2018-02-17] MEDS: MELATONIN 5 MG TABLETS PO PRN (21:19)
[2018-02-17] MEDS: THIAMINE HCL 100 MG TABLET (FP) PO SCH (21:19)
[2018-02-17] MEDS: hydrOXYzine PAMOATE 50 MG CAPSULE (FP) PO PRN (21:19)
[2018-02-18] MEDS ORDERED: METHADONE HCL 10 MG TABLET ONE (04:05)
[2018-02-18] MEDS ORDERED: METHADONE HCL 40 MG DISPERSABLE TABLET ONE (04:06)
[2018-02-18] MEDS ORDERED: METHADONE HCL 10 MG TABLET PO SCH (06:00)
[2018-02-18] MEDS: sitaGLIPtin PHOSPHATE 50 MG TABLET PO SCH (06:15)
[2018-02-18] MEDS: METHADONE 160 MG, METHADONE 10 MG PO SCH (06:15)
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
[2018-02-18] MEDS: INSULIN SLIDING SCALE (NOVOLOG) 1 VIAL SQ SCH ×2 (07:13→16:50)
[2018-02-18] MEDS: PRENATAL VITAMINS W/ FOLIC ACID TABLET (FP) PO SCH (10:01)
[2018-02-18] MEDS: NICOTINE 7 MG/24 HOURS TOPICAL PATCH TD SCH (10:03)
--- NOTE | 2018-02-18 10:12 | PN ---
[facility] Progress Note Note: PT C/O BODY ACHE/SPASM. FLEXERIL 10 MG PO Q8H
[2018-02-18] MEDS: ESCITALOPRAM OXALATE 20 MG TABLET (FP) PO SCH (12:22)
[2018-02-18] MEDS: CYCLOBENZAPRINE HCL 10 MG TABLET (FP) PO SCH ×2 (14:21→21:39)
[2018-02-18] MEDS: busPIRone HCL 10 MG TABLET (FP) PO SCH ×2 (14:21→21:39)
[2018-02-18] MEDS ORDERED: INSULIN (NOVOLOG) ASPART 100 UNITS/ML 10ML VIAL ONE (17:17)
[2018-02-18] MEDS: QUEtiapine FUMARATE 100 MG TABLET (FP) PO SCH (21:39)
[2018-02-18] MEDS: THIAMINE HCL 100 MG TABLET (FP) PO SCH (21:39)
[2018-02-19] MEDS ORDERED: METHADONE HCL 10 MG TABLET ONE (02:27)
[2018-02-19] MEDS ORDERED: METHADONE HCL 40 MG DISPERSABLE TABLET ONE (02:28)
[2018-02-19] MEDS: CYCLOBENZAPRINE HCL 10 MG TABLET (FP) PO SCH ×3 (06:30→21:02)
[2018-02-19] MEDS: busPIRone HCL 10 MG TABLET (FP) PO SCH ×3 (06:30→21:02)
[2018-02-19] MEDS: sitaGLIPtin PHOSPHATE 50 MG TABLET PO SCH (06:30)
[2018-02-19] MEDS: METHADONE 160 MG, METHADONE 10 MG PO SCH (06:31)
[2018-02-19] MEDS: INSULIN SLIDING SCALE (NOVOLOG) 1 VIAL SQ SCH ×2 (06:33→16:59)
[2018-02-19] MEDS: ESCITALOPRAM OXALATE 20 MG TABLET (FP) PO SCH (09:42)
[2018-02-19] MEDS: PRENATAL VITAMINS W/ FOLIC ACID TABLET (FP) PO SCH (09:42)
[2018-02-19] MEDS: NICOTINE 7 MG/24 HOURS TOPICAL PATCH TD SCH (09:44)
[2018-02-19] MEDS: QUEtiapine FUMARATE 100 MG TABLET (FP) PO SCH (21:02)
[2018-02-19] MEDS: THIAMINE HCL 100 MG TABLET (FP) PO SCH (21:02)
[2018-02-20] MEDS ORDERED: METHADONE HCL 10 MG TABLET ONE (04:44)
[2018-02-20] MEDS ORDERED: METHADONE HCL 40 MG DISPERSABLE TABLET ONE (04:45)
[2018-02-20] MEDS: METHADONE 160 MG, METHADONE 10 MG PO SCH (06:29)
[2018-02-20] MEDS: busPIRone HCL 10 MG TABLET (FP) PO SCH ×3 (06:30→21:08)
[2018-02-20] MEDS: CYCLOBENZAPRINE HCL 10 MG TABLET (FP) PO SCH ×3 (06:30→21:08)
[2018-02-20] MEDS: sitaGLIPtin PHOSPHATE 50 MG TABLET PO SCH (06:30)
[2018-02-20] MEDS: INSULIN SLIDING SCALE (NOVOLOG) 1 VIAL SQ SCH ×2 (06:31→16:38)
[2018-02-20] MEDS ORDERED: INSULIN (NOVOLOG) ASPART 100 UNITS/ML 10ML VIAL ONE (07:53)
[2018-02-20] MEDS: ESCITALOPRAM OXALATE 20 MG TABLET (FP) PO SCH (10:08)
[2018-02-20] MEDS: FERROUS SO4 325 MG TABLET (FP) PO SCH ×2 (10:08→21:08)
[2018-02-20] MEDS: NICOTINE 7 MG/24 HOURS TOPICAL PATCH TD SCH (10:09)
[2018-02-20] MEDS: PRENATAL VITAMINS W/ FOLIC ACID TABLET (FP) PO SCH (10:09)
--- NOTE | 2018-02-20 10:27 | PN ---
[facility] Progress Note Note: REPORTS HYPOTENSION; SLIGHT SOB AND WEAKNESS. PT IS OOB IN NAD. WENT TO GROUPS. Vital Signs 02/20/18 02/20/18 03:30 07:22 Temperature 97.7 F Pulse Rate 81 Respiratory 16 18 Rate Blood Pressure 116/70 Laboratory Tests 02/18/18 02/18/18 02/19/18 06:14 16:49 06:29 POC Glucometer 153 350 259 02/19/18 02/20/18 16:57 06:29 POC Glucometer 229 280 PULSE OX:98% ROOM AIR PT HAD AN ABNORMAL LAB RESULTS IN DETOX LOW HGB/HCT PLAN:FEOSOL 325 MG PO BID REPEAT CBC,BUN,CR ON 02/21/18 REPEAT UA INCREASE PO FLUIDS
[2018-02-20] MEDS ORDERED: PT OWN MED DRAWER 7, Y5N ONE (10:34)
[2018-02-20] MEDS: QUEtiapine FUMARATE 100 MG TABLET (FP) PO SCH (21:08)
[2018-02-20] MEDS: THIAMINE HCL 100 MG TABLET (FP) PO SCH (21:08)
[2018-02-21] MEDS ORDERED: METHADONE HCL 10 MG TABLET ONE (04:00)
[2018-02-21] MEDS ORDERED: METHADONE HCL 40 MG DISPERSABLE TABLET ONE (04:00)
[2018-02-21] MEDS: busPIRone HCL 10 MG TABLET (FP) PO SCH ×3 (06:19→21:04)
[2018-02-21] MEDS: CYCLOBENZAPRINE HCL 10 MG TABLET (FP) PO SCH ×3 (06:19→21:04)
[2018-02-21] MEDS: METHADONE 160 MG, METHADONE 10 MG PO SCH (06:19)
[2018-02-21] MEDS: sitaGLIPtin PHOSPHATE 50 MG TABLET PO SCH (06:21)
[2018-02-21] MEDS: INSULIN SLIDING SCALE (NOVOLOG) 1 VIAL SQ SCH ×2 (06:22→17:39)
[2018-02-21] MEDS: PRENATAL VITAMINS W/ FOLIC ACID TABLET (FP) PO SCH (09:57)
[2018-02-21] MEDS: FERROUS SO4 325 MG TABLET (FP) PO SCH ×2 (09:57→21:04)
[2018-02-21] MEDS: NICOTINE 7 MG/24 HOURS TOPICAL PATCH TD SCH (09:57)
[2018-02-21] MEDS: ESCITALOPRAM OXALATE 20 MG TABLET (FP) PO SCH (09:57)
[2018-02-21 11:54] LABS: BASO % 0.5 % (0-2.0); EOS % 1.7 % (0-4.5); HEMATOCRIT 33.1 % (35.4-49); HEMOGLOBIN 10.9 GM/dL (11.7-16.9); LYMPH % 31.2 % (8-40); MEAN PLT VOLUME 7.7 fl (7.5-11.1); MONO % 10.7 % (3.8-10.2); NEUT % 55.9 % (42.8-82.8); PLATELET COUNT 167 K/MM3 (134-434); RBC 3.52 M/mm3 (4.00-5.60); RDW 13.9 % (11.9-15.9); WHITE BLOOD COUNT 6.5 K/mm3 (4.0-10.0)
[2018-02-21] MEDS ORDERED: INSULIN (NOVOLOG) ASPART 100 UNITS/ML 10ML VIAL ONE (18:07)
[2018-02-21] MEDS: THIAMINE HCL 100 MG TABLET (FP) PO SCH (21:04)
[2018-02-21] MEDS: QUEtiapine FUMARATE 100 MG TABLET (FP) PO SCH (21:04)
[2018-02-22] MEDS ORDERED: METHADONE HCL 10 MG TABLET ONE (03:41)
[2018-02-22] MEDS ORDERED: METHADONE HCL 40 MG DISPERSABLE TABLET ONE (03:41)
[2018-02-22] MEDS: METHADONE 160 MG, METHADONE 10 MG PO SCH (06:22)
[2018-02-22] MEDS: busPIRone HCL 10 MG TABLET (FP) PO SCH ×3 (06:23→21:21)
[2018-02-22] MEDS: CYCLOBENZAPRINE HCL 10 MG TABLET (FP) PO SCH ×3 (06:23→21:21)
[2018-02-22] MEDS: sitaGLIPtin PHOSPHATE 50 MG TABLET PO SCH (06:24)
[2018-02-22] MEDS: INSULIN SLIDING SCALE (NOVOLOG) 1 VIAL SQ SCH ×2 (06:25→17:51)
[2018-02-22] MEDS: FERROUS SO4 325 MG TABLET (FP) PO SCH ×2 (10:01→21:21)
[2018-02-22] MEDS: NICOTINE 7 MG/24 HOURS TOPICAL PATCH TD SCH (10:01)
[2018-02-22] MEDS: PRENATAL VITAMINS W/ FOLIC ACID TABLET (FP) PO SCH (10:01)
[2018-02-22] MEDS: ESCITALOPRAM OXALATE 20 MG TABLET (FP) PO SCH (10:02)
[2018-02-22 14:41] LABS: URINE APPEARANCE CLEAR; URINE BILIRUBIN NEGATIVE (<2.0 mg/dL); URINE COLOR LTYELLOW; URINE GLUCOSE (UA) 3+ (NEGATIVE); URINE KETONE NEGATIVE (NEGATIVE); URINE LEUK ESTERASE 1+ (NEGATIVE); URINE NITRITE NEGATIVE (NEGATIVE); URINE PROTEIN NEGATIVE (NEGATIVE); URINE UROBILINOGEN NEGATIVE mg/dL (0.2-1.0)
[2018-02-22 14:51] LABS: EPI CELLS RARE /HPF (FEW)
[2018-02-22] MEDS ORDERED: INSULIN (NOVOLOG) ASPART 100 UNITS/ML 10ML VIAL ONE (17:52)
[2018-02-22] MEDS: THIAMINE HCL 100 MG TABLET (FP) PO SCH (21:20)
[2018-02-22] MEDS: QUEtiapine FUMARATE 100 MG TABLET (FP) PO SCH (21:21)
[2018-02-23] MEDS ORDERED: METHADONE HCL 10 MG TABLET ONE (05:57)
[2018-02-23] MEDS ORDERED: METHADONE HCL 40 MG DISPERSABLE TABLET ONE (05:57)
[2018-02-23] MEDS: METHADONE 160 MG, METHADONE 10 MG PO SCH (06:33)
[2018-02-23] MEDS: busPIRone HCL 10 MG TABLET (FP) PO SCH ×3 (06:34→23:26)
[2018-02-23] MEDS: CYCLOBENZAPRINE HCL 10 MG TABLET (FP) PO SCH ×3 (06:34→23:27)
[2018-02-23] MEDS: INSULIN SLIDING SCALE (NOVOLOG) 1 VIAL SQ SCH ×2 (06:35→17:14)
[2018-02-23] MEDS: sitaGLIPtin PHOSPHATE 50 MG TABLET PO SCH (06:35)
[2018-02-23] MEDS ORDERED: INSULIN (NOVOLOG) ASPART 100 UNITS/ML 10ML VIAL ONE (06:36)
[2018-02-23] MEDS: ESCITALOPRAM OXALATE 20 MG TABLET (FP) PO SCH (10:13)
[2018-02-23] MEDS: PRENATAL VITAMINS W/ FOLIC ACID TABLET (FP) PO SCH (10:13)
[2018-02-23] MEDS: NICOTINE 7 MG/24 HOURS TOPICAL PATCH TD SCH (10:13)
[2018-02-23] MEDS: FERROUS SO4 325 MG TABLET (FP) PO SCH ×2 (10:13→23:27)
[2018-02-23] MEDS: hydrOXYzine PAMOATE 50 MG CAPSULE (FP) PO PRN (10:14)
--- NOTE | 2018-02-23 18:19 | PN ---
[facility] Progress Note Note: Patient went to sit in chair, missed and hit head. Denies vertigo. No LOC. Alert & oriented. c/o pounding headache. Denies visual changes, PERRL; BHG=, FROM head/neck.No spinal tenderness. 2 cm area of slight edema at (R) occipital area. Skin intact. B/P: 112/64; HR: 84; R: 18; T: 98.3 CMP BUN 43 mg/dL (7-18) H 02/21/18 10:00 Creatinine 2.0 mg/dL (0.55-1.3) H 02/21/18 10:00 POC Glucometer 310 UNITS (80-120) 02/23/18 17:13 Ice pack to area. Fall Protocol 1. To [facility] ER via ambulance. Repot given to Dr. Ruby Whitmore.
[2018-02-23] MEDS: QUEtiapine FUMARATE 100 MG TABLET (FP) PO SCH (23:27)
[2018-02-23] MEDS: THIAMINE HCL 100 MG TABLET (FP) PO SCH (23:28)
[2018-02-24] MEDS: MELATONIN 5 MG TABLETS PO PRN ×2 (01:14→21:46)
[2018-02-24] MEDS: hydrOXYzine PAMOATE 50 MG CAPSULE (FP) PO PRN ×2 (01:14→21:46)
[2018-02-24] MEDS ORDERED: METHADONE HCL 10 MG TABLET ONE (06:30)
[2018-02-24] MEDS: METHADONE 160 MG, METHADONE 10 MG PO SCH (06:30)
[2018-02-24] MEDS: busPIRone HCL 10 MG TABLET (FP) PO SCH ×3 (06:30→21:46)
[2018-02-24] MEDS: sitaGLIPtin PHOSPHATE 50 MG TABLET PO SCH (06:30)
[2018-02-24] MEDS ORDERED: METHADONE HCL 40 MG DISPERSABLE TABLET ONE (06:30)
[2018-02-24] MEDS: CYCLOBENZAPRINE HCL 10 MG TABLET (FP) PO SCH ×3 (06:30→21:46)
[2018-02-24] MEDS: INSULIN SLIDING SCALE (NOVOLOG) 1 VIAL SQ SCH ×2 (07:31→16:49)
[2018-02-24] MEDS: FERROUS SO4 325 MG TABLET (FP) PO SCH ×2 (10:21→21:46)
[2018-02-24] MEDS: PRENATAL VITAMINS W/ FOLIC ACID TABLET (FP) PO SCH (10:21)
[2018-02-24] MEDS: NICOTINE 7 MG/24 HOURS TOPICAL PATCH TD SCH (10:21)
[2018-02-24] MEDS: ESCITALOPRAM OXALATE 20 MG TABLET (FP) PO SCH (10:21)
[2018-02-24] MEDS: THIAMINE HCL 100 MG TABLET (FP) PO SCH (21:46)
[2018-02-24] MEDS: QUEtiapine FUMARATE 100 MG TABLET (FP) PO SCH (21:46)
[2018-02-25] MEDS ORDERED: METHADONE HCL 10 MG TABLET ONE (02:57)
[2018-02-25] MEDS ORDERED: METHADONE HCL 40 MG DISPERSABLE TABLET ONE (02:57)
[2018-02-25] MEDS: busPIRone HCL 10 MG TABLET (FP) PO SCH ×3 (06:20→21:01)
[2018-02-25] MEDS: METHADONE 160 MG, METHADONE 10 MG PO SCH (06:20)
[2018-02-25] MEDS: CYCLOBENZAPRINE HCL 10 MG TABLET (FP) PO SCH ×3 (06:20→21:01)
[2018-02-25] MEDS: sitaGLIPtin PHOSPHATE 50 MG TABLET PO SCH (06:21)
[2018-02-25] MEDS: INSULIN SLIDING SCALE (NOVOLOG) 1 VIAL SQ SCH (06:56)
[2018-02-25] MEDS ORDERED: PT OWN MED DRAWER 7, Y5N ONE (08:55)
[2018-02-25] MEDS: FERROUS SO4 325 MG TABLET (FP) PO SCH ×2 (10:23→21:01)
[2018-02-25] MEDS: PRENATAL VITAMINS W/ FOLIC ACID TABLET (FP) PO SCH (10:23)
[2018-02-25] MEDS: NICOTINE 7 MG/24 HOURS TOPICAL PATCH TD SCH (10:23)
[2018-02-25] MEDS: ESCITALOPRAM OXALATE 20 MG TABLET (FP) PO SCH (10:23)
--- NOTE | 2018-02-25 15:44 | PN ---
[facility] Progress Note Note: Vital Signs - 24 hr 02/24/18 02/25/18 02/25/18 17:45 00:30 03:30 Temperature 97.7 F Pulse Rate 87 Respiratory 18 16 16 Rate Blood Pressure 125/76 02/25/18 02/25/18 07:01 09:54 Temperature 97.9 F Pulse Rate 94 H 92 H Respiratory 18 18 Rate Blood Pressure 116/77 116/74 Laboratory Tests 02/18/18 02/18/18 02/19/18 06:14 16:49 06:29 WBC RBC Hgb Hct MCV MCH MCHC RDW Plt Count MPV Absolute Neuts (auto) Neutrophils % Lymphocytes % Monocytes % Eosinophils % Basophils % Nucleated RBC % BUN Creatinine POC Glucometer 153 350 259 Urine Color Urine Appearance Urine pH Ur Specific [place] Urine Protein Urine Glucose (UA) Urine Ketones Urine Blood Urine Nitrite Urine Bilirubin Urine Urobilinogen Ur Leukocyte Esterase Urine WBC (Auto) Urine RBC (Auto) Ur Epithelial Cells 02/19/18 02/20/18 02/20/18 16:57 06:29 16:38 WBC RBC Hgb Hct MCV MCH MCHC RDW Plt Count MPV Absolute Neuts (auto) Neutrophils % Lymphocytes % Monocytes % Eosinophils % Basophils % Nucleated RBC % BUN Creatinine POC Glucometer 229 280 420 Urine Color Urine Appearance Urine pH Ur Specific [place] Urine Protein Urine Glucose (UA) Urine Ketones Urine Blood Urine Nitrite Urine Bilirubin Urine Urobilinogen Ur Leukocyte Esterase Urine WBC (Auto) Urine RBC (Auto) Ur Epithelial Cells 02/21/18 02/21/18 02/21/18 06:20 10:00 10:00 WBC 6.5 RBC 3.52 L Hgb 10.9 L Hct 33.1 L MCV 94.0 MCH 31.0 MCHC 33.0 RDW 13.9 Plt Count 167 MPV 7.7 D Absolute Neuts (auto) 3.7 Neutrophils % 55.9 Lymphocytes % 31.2 Monocytes % 10.7 H Eosinophils % 1.7 Basophils % 0.5 Nucleated RBC % 0 BUN 43 H Creatinine 2.0 H POC Glucometer 202 Urine Color Urine Appearance Urine pH Ur Specific [place] Urine Protein Urine Glucose (UA) Urine Ketones Urine Blood Urine Nitrite Urine Bilirubin Urine Urobilinogen Ur Leukocyte Esterase Urine WBC (Auto) Urine RBC (Auto) Ur Epithelial Cells 02/21/18 02/22/18 02/22/18 16:43 06:23 12:59 WBC RBC Hgb Hct MCV MCH MCHC RDW Plt Count MPV Absolute Neuts (auto) Neutrophils % Lymphocytes % Monocytes % Eosinophils % Basophils % Nucleated RBC % BUN Creatinine POC Glucometer 454 172 Urine Color Ltyellow Urine Appearance Clear Urine pH 6.0 Ur Specific [place] 1.011 Urine Protein Negative Urine Glucose (UA) 3+ H Urine Ketones Negative Urine Blood Negative Urine Nitrite Negative Urine Bilirubin Negative Urine Urobilinogen Negative Ur Leukocyte Esterase 1+ H Urine WBC (Auto) 18 Urine RBC (Auto) 6 Ur Epithelial Cells Rare 02/22/18 02/23/18 02/23/18 17:50 06:16 17:13 WBC RBC Hgb Hct MCV MCH MCHC RDW Plt Count MPV Absolute Neuts (auto) Neutrophils % Lymphocytes % Monocytes % Eosinophils % Basophils % Nucleated RBC % BUN Creatinine POC Glucometer 321 262 310 Urine Color Urine Appearance Urine pH Ur Specific [place] Urine Protein Urine Glucose (UA) Urine Ketones Urine Blood Urine Nitrite Urine Bilirubin Urine Urobilinogen Ur Leukocyte Esterase Urine WBC (Auto) Urine RBC (Auto) Ur Epithelial Cells 02/24/18 02/24/18 02/25/18 06:28 16:48 06:21 WBC RBC Hgb Hct MCV MCH MCHC RDW Plt Count MPV Absolute Neuts (auto) Neutrophils % Lymphocytes % Monocytes % Eosinophils % Basophils % Nucleated RBC % BUN Creatinine POC Glucometer 247 373 262 Urine Color Urine Appearance Urine pH Ur Specific [place] Urine Protein Urine Glucose (UA) Urine Ketones Urine Blood Urine Nitrite Urine Bilirubin Urine Urobilinogen Ur Leukocyte Esterase Urine WBC (Auto) Urine RBC (Auto) Ur Epithelial Cells UA ABNL REPEAT UA; UC
[2018-02-25] MEDS: INSULIN (LEVEMIR) 100 UNITS/ML UNITS SQ SCH (21:00)
[2018-02-25] MEDS: QUEtiapine FUMARATE 100 MG TABLET (FP) PO SCH (21:01)
[2018-02-25] MEDS: THIAMINE HCL 100 MG TABLET (FP) PO SCH (21:01)
[2018-02-25] MEDS ORDERED: PATIENT'S OWN MEDICATION (NON-FORMULARY) (Insulin Glargine,Hum.Rec.Anlog 25 UNITS) SQ SCH (22:00)
[2018-02-26] MEDS ORDERED: PT OWN MED DRAWER 7, Y5N ONE (00:50)
[2018-02-26] MEDS ORDERED: METHADONE HCL 40 MG DISPERSABLE TABLET ONE (05:52)
[2018-02-26] MEDS ORDERED: METHADONE HCL 10 MG TABLET ONE (05:52)
[2018-02-26] MEDS: busPIRone HCL 10 MG TABLET (FP) PO SCH ×3 (06:21→21:42)
[2018-02-26] MEDS: CYCLOBENZAPRINE HCL 10 MG TABLET (FP) PO SCH ×3 (06:21→21:42)
[2018-02-26] MEDS: METHADONE 160 MG, METHADONE 10 MG PO SCH (06:21)
[2018-02-26] MEDS: sitaGLIPtin PHOSPHATE 50 MG TABLET PO SCH (06:22)
[2018-02-26] MEDS: NICOTINE 7 MG/24 HOURS TOPICAL PATCH TD SCH (10:05)
[2018-02-26] MEDS: PRENATAL VITAMINS W/ FOLIC ACID TABLET (FP) PO SCH (10:05)
[2018-02-26] MEDS: ESCITALOPRAM OXALATE 20 MG TABLET (FP) PO SCH (10:05)
[2018-02-26] MEDS: FERROUS SO4 325 MG TABLET (FP) PO SCH ×2 (10:05→16:53)
[2018-02-26 15:03] LABS: URINE APPEARANCE CLEAR; URINE BILIRUBIN NEGATIVE (<2.0 mg/dL); URINE COLOR LTYELLOW; URINE GLUCOSE (UA) 3+ (NEGATIVE); URINE KETONE NEGATIVE (NEGATIVE); URINE LEUK ESTERASE 3+ (NEGATIVE); URINE NITRITE NEGATIVE (NEGATIVE); URINE PROTEIN NEGATIVE (NEGATIVE); URINE UROBILINOGEN NEGATIVE mg/dL (0.2-1.0)
[2018-02-26 15:32] LABS: EPI CELLS RARE /HPF (FEW); URINE MUCUS RARE
[2018-02-26] MEDS: THIAMINE HCL 100 MG TABLET (FP) PO SCH (21:41)
[2018-02-26] MEDS: QUEtiapine FUMARATE 100 MG TABLET (FP) PO SCH (21:42)
[2018-02-26] MEDS: INSULIN (LEVEMIR) 100 UNITS/ML UNITS SQ SCH (21:45)
[2018-02-27] MEDS: busPIRone HCL 10 MG TABLET (FP) PO SCH ×3 (06:15→21:14)
[2018-02-27] MEDS: METHADONE 160 MG, METHADONE 10 MG PO SCH (06:15)
[2018-02-27] MEDS: CYCLOBENZAPRINE HCL 10 MG TABLET (FP) PO SCH ×3 (06:15→21:14)
[2018-02-27] MEDS ORDERED: METHADONE HCL 10 MG TABLET ONE (06:15)
[2018-02-27] MEDS ORDERED: METHADONE HCL 40 MG DISPERSABLE TABLET ONE (06:15)
[2018-02-27] MEDS: FERROUS SO4 325 MG TABLET (FP) PO SCH ×2 (07:53→17:55)
[2018-02-27] MEDS: sitaGLIPtin PHOSPHATE 50 MG TABLET PO SCH (07:53)
[2018-02-27] MEDS: ESCITALOPRAM OXALATE 20 MG TABLET (FP) PO SCH (10:11)
[2018-02-27] MEDS: PRENATAL VITAMINS W/ FOLIC ACID TABLET (FP) PO SCH (10:11)
[2018-02-27] MEDS: NICOTINE 7 MG/24 HOURS TOPICAL PATCH TD SCH (10:11)
[2018-02-27] MEDS: hydrOXYzine PAMOATE 50 MG CAPSULE (FP) PO PRN (14:58)
[2018-02-27] MEDS: INSULIN (LEVEMIR) 100 UNITS/ML UNITS SQ SCH (21:12)
[2018-02-27] MEDS: MELATONIN 5 MG TABLETS PO PRN (21:14)
[2018-02-27] MEDS: QUEtiapine FUMARATE 100 MG TABLET (FP) PO SCH (21:14)
[2018-02-27] MEDS: THIAMINE HCL 100 MG TABLET (FP) PO SCH (22:34)
[2018-02-28] MEDS ORDERED: METHADONE HCL 40 MG DISPERSABLE TABLET ONE (03:03)
[2018-02-28] MEDS ORDERED: METHADONE HCL 10 MG TABLET ONE (03:03)
[2018-02-28] MEDS: busPIRone HCL 10 MG TABLET (FP) PO SCH ×3 (06:15→21:20)
[2018-02-28] MEDS: METHADONE 160 MG, METHADONE 10 MG PO SCH (06:15)
[2018-02-28] MEDS: sitaGLIPtin PHOSPHATE 50 MG TABLET PO SCH (06:15)
[2018-02-28] MEDS: CYCLOBENZAPRINE HCL 10 MG TABLET (FP) PO SCH ×3 (06:15→21:20)
[2018-02-28] MEDS: FERROUS SO4 325 MG TABLET (FP) PO SCH ×2 (07:25→17:05)
[2018-02-28] MEDS: PRENATAL VITAMINS W/ FOLIC ACID TABLET (FP) PO SCH (09:59)
[2018-02-28] MEDS: NICOTINE 7 MG/24 HOURS TOPICAL PATCH TD SCH (09:59)
[2018-02-28] MEDS: ESCITALOPRAM OXALATE 20 MG TABLET (FP) PO SCH (09:59)
[2018-02-28] MEDS: hydrOXYzine PAMOATE 50 MG CAPSULE (FP) PO PRN ×2 (09:59→21:20)
[2018-02-28] MEDS: INSULIN (LEVEMIR) 100 UNITS/ML UNITS SQ SCH (21:20)
[2018-02-28] MEDS: QUEtiapine FUMARATE 100 MG TABLET (FP) PO SCH (21:20)
[2018-02-28] MEDS: MELATONIN 5 MG TABLETS PO PRN (21:20)
[2018-02-28] MEDS: THIAMINE HCL 100 MG TABLET (FP) PO SCH (21:21)
[2018-03-01] MEDS ORDERED: METHADONE HCL 40 MG DISPERSABLE TABLET ONE (05:23)
[2018-03-01] MEDS ORDERED: METHADONE HCL 10 MG TABLET ONE (05:23)
[2018-03-01] MEDS: sitaGLIPtin PHOSPHATE 50 MG TABLET PO SCH (06:44)
[2018-03-01] MEDS: CYCLOBENZAPRINE HCL 10 MG TABLET (FP) PO SCH ×3 (06:44→21:20)
[2018-03-01] MEDS: busPIRone HCL 10 MG TABLET (FP) PO SCH ×3 (06:44→21:20)
[2018-03-01] MEDS: METHADONE 160 MG, METHADONE 10 MG PO SCH (06:45)
[2018-03-01] MEDS: FERROUS SO4 325 MG TABLET (FP) PO SCH ×2 (07:14→18:21)
[2018-03-01] MEDS: NICOTINE 7 MG/24 HOURS TOPICAL PATCH TD SCH (10:31)
[2018-03-01] MEDS: PRENATAL VITAMINS W/ FOLIC ACID TABLET (FP) PO SCH (10:31)
[2018-03-01] MEDS: ESCITALOPRAM OXALATE 20 MG TABLET (FP) PO SCH (10:31)
[2018-03-01] MEDS: hydrOXYzine PAMOATE 50 MG CAPSULE (FP) PO PRN (18:22)
[2018-03-01] MEDS: QUEtiapine FUMARATE 100 MG TABLET (FP) PO SCH (21:20)
[2018-03-01] MEDS: THIAMINE HCL 100 MG TABLET (FP) PO SCH (21:20)
[2018-03-01] MEDS: INSULIN (LEVEMIR) 100 UNITS/ML UNITS SQ SCH (21:20)
[2018-03-02] MEDS ORDERED: METHADONE HCL 10 MG TABLET ONE (03:07)
[2018-03-02] MEDS ORDERED: METHADONE HCL 40 MG DISPERSABLE TABLET ONE (03:08)
[2018-03-02] MEDS: CYCLOBENZAPRINE HCL 10 MG TABLET (FP) PO SCH ×3 (06:18→21:26)
[2018-03-02] MEDS: busPIRone HCL 10 MG TABLET (FP) PO SCH ×3 (06:18→21:26)
[2018-03-02] MEDS: sitaGLIPtin PHOSPHATE 50 MG TABLET PO SCH (06:18)
[2018-03-02] MEDS: METHADONE 160 MG, METHADONE 10 MG PO SCH (06:18)
[2018-03-02] MEDS: FERROUS SO4 325 MG TABLET (FP) PO SCH ×2 (07:06→17:18)
[2018-03-02] MEDS: ESCITALOPRAM OXALATE 20 MG TABLET (FP) PO SCH (10:24)
[2018-03-02] MEDS: NICOTINE 7 MG/24 HOURS TOPICAL PATCH TD SCH (10:24)
[2018-03-02] MEDS: PRENATAL VITAMINS W/ FOLIC ACID TABLET (FP) PO SCH (10:24)
[2018-03-02] MEDS: INSULIN (LEVEMIR) 100 UNITS/ML UNITS SQ SCH (21:24)
[2018-03-02] MEDS: THIAMINE HCL 100 MG TABLET (FP) PO SCH (21:26)
[2018-03-02] MEDS: hydrOXYzine PAMOATE 50 MG CAPSULE (FP) PO PRN (21:26)
[2018-03-02] MEDS: QUEtiapine FUMARATE 100 MG TABLET (FP) PO SCH (21:26)
[2018-03-03] MEDS ORDERED: METHADONE HCL 10 MG TABLET ONE (03:09)
[2018-03-03] MEDS ORDERED: METHADONE HCL 40 MG DISPERSABLE TABLET ONE (03:09)
[2018-03-03] MEDS: busPIRone HCL 10 MG TABLET (FP) PO SCH ×3 (06:16→21:19)
[2018-03-03] MEDS: METHADONE 160 MG, METHADONE 10 MG PO SCH (06:16)
[2018-03-03] MEDS: sitaGLIPtin PHOSPHATE 50 MG TABLET PO SCH (06:16)
[2018-03-03] MEDS: CYCLOBENZAPRINE HCL 10 MG TABLET (FP) PO SCH ×3 (06:16→21:19)
[2018-03-03] MEDS: FERROUS SO4 325 MG TABLET (FP) PO SCH ×2 (07:09→17:09)
[2018-03-03] MEDS: NICOTINE 7 MG/24 HOURS TOPICAL PATCH TD SCH (10:33)
[2018-03-03] MEDS: PRENATAL VITAMINS W/ FOLIC ACID TABLET (FP) PO SCH (10:33)
[2018-03-03] MEDS: ESCITALOPRAM OXALATE 20 MG TABLET (FP) PO SCH (10:33)
[2018-03-03] MEDS: hydrOXYzine PAMOATE 50 MG CAPSULE (FP) PO PRN ×2 (14:42→21:19)
[2018-03-03] MEDS: INSULIN (LEVEMIR) 100 UNITS/ML UNITS SQ SCH (21:19)
[2018-03-03] MEDS: QUEtiapine FUMARATE 100 MG TABLET (FP) PO SCH (21:19)
[2018-03-03] MEDS: MELATONIN 5 MG TABLETS PO PRN (21:19)
[2018-03-03] MEDS: THIAMINE HCL 100 MG TABLET (FP) PO SCH (21:19)
[2018-03-03] MEDS: INSULIN SLIDING SCALE (NOVOLOG) 1 VIAL SQ SCH (22:36)
[2018-03-04] MEDS ORDERED: METHADONE HCL 10 MG TABLET ONE (05:33)
[2018-03-04] MEDS ORDERED: METHADONE HCL 40 MG DISPERSABLE TABLET ONE (05:34)
[2018-03-04] MEDS: CYCLOBENZAPRINE HCL 10 MG TABLET (FP) PO SCH ×3 (06:26→21:14)
[2018-03-04] MEDS: METHADONE 160 MG, METHADONE 10 MG PO SCH (06:26)
[2018-03-04] MEDS: busPIRone HCL 10 MG TABLET (FP) PO SCH ×3 (06:26→21:14)
[2018-03-04] MEDS: sitaGLIPtin PHOSPHATE 50 MG TABLET PO SCH (07:12)
[2018-03-04] MEDS: INSULIN SLIDING SCALE (NOVOLOG) 1 VIAL SQ SCH ×4 (07:12→21:14)
[2018-03-04] MEDS: FERROUS SO4 325 MG TABLET (FP) PO SCH ×2 (07:13→16:58)
[2018-03-04] MEDS: PRENATAL VITAMINS W/ FOLIC ACID TABLET (FP) PO SCH (10:56)
[2018-03-04] MEDS: NICOTINE 7 MG/24 HOURS TOPICAL PATCH TD SCH (10:56)
[2018-03-04] MEDS: ESCITALOPRAM OXALATE 20 MG TABLET (FP) PO SCH (10:56)
--- NOTE | 2018-03-04 11:03 | PN ---
[facility] Progress Note Note: Laboratory Last Values WBC 6.5 K/mm3 (4.0-10.0) 02/21/18 10:00 RBC 3.52 M/mm3 (4.00-5.60) L 02/21/18 10:00 Hgb 10.9 GM/dL (11.7-16.9) L 02/21/18 10:00 Hct 33.1 % (35.4-49) L 02/21/18 10:00 MCV 94.0 fl (80-96) 02/21/18 10:00 MCH 31.0 pg (25.7-33.7) 02/21/18 10:00 MCHC 33.0 g/dl (32.0-35.9) 02/21/18 10:00 RDW 13.9 % (11.9-15.9) 02/21/18 10:00 Plt Count 167 K/MM3 (134-434) 02/21/18 10:00 MPV 7.7 fl (7.5-11.1) D 02/21/18 10:00 Absolute Neuts (auto) 3.7 K/mm3 (1.5-8.0) 02/21/18 10:00 Neutrophils % 55.9 % (42.8-82.8) 02/21/18 10:00 Lymphocytes % 31.2 % (8-40) 02/21/18 10:00 Monocytes % 10.7 % (3.8-10.2) H 02/21/18 10:00 Eosinophils % 1.7 % (0-4.5) 02/21/18 10:00 Basophils % 0.5 % (0-2.0) 02/21/18 10:00 Nucleated RBC % 0 % (0-0) 02/21/18 10:00 BUN 43 mg/dL (7-18) H 02/21/18 10:00 Creatinine 2.0 mg/dL (0.55-1.3) H 02/21/18 10:00 POC Glucometer 76 UNITS (80-120) 03/04/18 06:25 Urine Color L[place] 02/26/18 09:30 Urine Appearance Clear 02/26/18 09:30 Urine pH 5.0 (5.0-8.0) 02/26/18 09:30 Ur Specific [place] 1.010 (1.010-1.035) 02/26/18 09:30 Urine Protein Negative (NEGATIVE) 02/26/18 09:30 Urine Glucose (UA) 3+ (NEGATIVE) H 02/26/18 09:30 Urine Ketones Negative (NEGATIVE) 02/26/18 09:30 Urine Blood Negative (NEGATIVE) 02/26/18 09:30 Urine Nitrite Negative (NEGATIVE) 02/26/18:30 Urine Bilirubin Negative (<2.0 mg/dL) 02/26/18:30 Urine Urobilinogen Negative mg/dL (0.2-1.0) 02/26/18 09:30 Ur Leukocyte Esterase 3+ (NEGATIVE) H D 02/26/18 09:30 Urine WBC (Auto) 42 /hpf (3-5) 02/26/18 09:30 Urine RBC (Auto) 3 /hpf (0-3) 02/26/18 09:30 Ur Epithelial Cells Rare /HPF (FEW) 02/26/18 09:30 Urine Mucus Rare 02/26/18 09:30 Microbiology 02/26/18 09:30 Urine - Urine Clean Catch Urine Culture - Final NO GROWTH OBTAINED LABS NOTED. ASYMPTOMATIC INCREASE PO FLUIDS. FOLLOW UP WITH PMD AFTER REHAB FOR MEDICAL MANAGEMENT.
[2018-03-04] MEDS: INSULIN (LEVEMIR) 100 UNITS/ML UNITS SQ SCH (21:13)
[2018-03-04] MEDS: THIAMINE HCL 100 MG TABLET (FP) PO SCH (21:14)
[2018-03-04] MEDS: QUEtiapine FUMARATE 100 MG TABLET (FP) PO SCH (21:14)
[2018-03-04] MEDS: hydrOXYzine PAMOATE 50 MG CAPSULE (FP) PO PRN (21:16)
[2018-03-04] MEDS: MELATONIN 5 MG TABLETS PO PRN (21:16)
[2018-03-04] MEDS ORDERED: INSULIN (NOVOLOG) ASPART 100 UNITS/ML 10ML VIAL ONE (22:02)
[2018-03-05] MEDS ORDERED: METHADONE HCL 40 MG DISPERSABLE TABLET ONE (05:37)
[2018-03-05] MEDS ORDERED: METHADONE HCL 10 MG TABLET ONE (05:37)
[2018-03-05] MEDS: busPIRone HCL 10 MG TABLET (FP) PO SCH ×3 (05:56→21:14)
[2018-03-05] MEDS: CYCLOBENZAPRINE HCL 10 MG TABLET (FP) PO SCH ×3 (05:56→21:14)
[2018-03-05] MEDS: METHADONE 160 MG, METHADONE 10 MG PO SCH (05:56)
[2018-03-05] MEDS: INSULIN SLIDING SCALE (NOVOLOG) 1 VIAL SQ SCH ×4 (06:48→21:15)
[2018-03-05] MEDS: sitaGLIPtin PHOSPHATE 50 MG TABLET PO SCH (06:48)
[2018-03-05] MEDS: FERROUS SO4 325 MG TABLET (FP) PO SCH ×2 (07:57→17:07)
[2018-03-05] MEDS: NICOTINE 7 MG/24 HOURS TOPICAL PATCH TD SCH (10:16)
[2018-03-05] MEDS: ESCITALOPRAM OXALATE 20 MG TABLET (FP) PO SCH (10:17)
[2018-03-05] MEDS: PRENATAL VITAMINS W/ FOLIC ACID TABLET (FP) PO SCH (10:17)
[2018-03-05] MEDS: QUEtiapine FUMARATE 100 MG TABLET (FP) PO SCH (21:14)
[2018-03-05] MEDS: hydrOXYzine PAMOATE 50 MG CAPSULE (FP) PO PRN (21:14)
[2018-03-05] MEDS: MELATONIN 5 MG TABLETS PO PRN (21:14)
[2018-03-05] MEDS: THIAMINE HCL 100 MG TABLET (FP) PO SCH (21:14)
[2018-03-05] MEDS: INSULIN (LEVEMIR) 100 UNITS/ML UNITS SQ SCH (21:15)
[2018-03-06] MEDS ORDERED: METHADONE HCL 10 MG TABLET ONE (05:33)
[2018-03-06] MEDS ORDERED: METHADONE HCL 40 MG DISPERSABLE TABLET ONE (05:34)
[2018-03-06] MEDS: METHADONE 160 MG, METHADONE 10 MG PO SCH (06:12)
[2018-03-06] MEDS: CYCLOBENZAPRINE HCL 10 MG TABLET (FP) PO SCH ×3 (06:12→21:17)
[2018-03-06] MEDS: busPIRone HCL 10 MG TABLET (FP) PO SCH ×3 (06:12→21:17)
[2018-03-06] MEDS: INSULIN SLIDING SCALE (NOVOLOG) 1 VIAL SQ SCH ×4 (07:04→21:19)
[2018-03-06] MEDS: sitaGLIPtin PHOSPHATE 50 MG TABLET PO SCH (07:04)
[2018-03-06] MEDS: FERROUS SO4 325 MG TABLET (FP) PO SCH ×2 (07:04→16:51)
[2018-03-06] MEDS: PRENATAL VITAMINS W/ FOLIC ACID TABLET (FP) PO SCH (10:00)
[2018-03-06] MEDS: NICOTINE 7 MG/24 HOURS TOPICAL PATCH TD SCH (10:00)
[2018-03-06] MEDS: ESCITALOPRAM OXALATE 20 MG TABLET (FP) PO SCH (10:00)
[2018-03-06] MEDS ORDERED: INSULIN (NOVOLOG) ASPART 100 UNITS/ML 10ML VIAL ONE (11:28)
[2018-03-06] MEDS: hydrOXYzine PAMOATE 50 MG CAPSULE (FP) PO PRN (21:17)
[2018-03-06] MEDS: MELATONIN 5 MG TABLETS PO PRN (21:17)
[2018-03-06] MEDS: QUEtiapine FUMARATE 100 MG TABLET (FP) PO SCH (21:17)
[2018-03-06] MEDS: THIAMINE HCL 100 MG TABLET (FP) PO SCH (21:17)
[2018-03-06] MEDS: INSULIN (LEVEMIR) 100 UNITS/ML UNITS SQ SCH (21:18)
[2018-03-07] MEDS ORDERED: METHADONE HCL 10 MG TABLET ONE (03:18)
[2018-03-07] MEDS ORDERED: METHADONE HCL 40 MG DISPERSABLE TABLET ONE (03:18)
[2018-03-07] MEDS: sitaGLIPtin PHOSPHATE 50 MG TABLET PO SCH (06:10)
[2018-03-07] MEDS: CYCLOBENZAPRINE HCL 10 MG TABLET (FP) PO SCH ×3 (06:10→22:14)
[2018-03-07] MEDS: METHADONE 160 MG, METHADONE 10 MG PO SCH (06:10)
[2018-03-07] MEDS: busPIRone HCL 10 MG TABLET (FP) PO SCH ×3 (06:10→22:14)
[2018-03-07] MEDS: INSULIN SLIDING SCALE (NOVOLOG) 1 VIAL SQ SCH ×4 (07:10→22:11)
[2018-03-07] MEDS: FERROUS SO4 325 MG TABLET (FP) PO SCH ×2 (07:10→16:50)
[2018-03-07] MEDS: NICOTINE 7 MG/24 HOURS TOPICAL PATCH TD SCH (10:05)
[2018-03-07] MEDS: PRENATAL VITAMINS W/ FOLIC ACID TABLET (FP) PO SCH (10:05)
[2018-03-07] MEDS: ESCITALOPRAM OXALATE 20 MG TABLET (FP) PO SCH (10:05)
[2018-03-07] MEDS ORDERED: INSULIN (NOVOLOG) ASPART 100 UNITS/ML 10ML VIAL ONE ×3 (11:25→22:12)
[2018-03-07] MEDS: hydrOXYzine PAMOATE 50 MG CAPSULE (FP) PO PRN (14:15)
[2018-03-07] MEDS: INSULIN (LEVEMIR) 100 UNITS/ML UNITS SQ SCH (22:13)
[2018-03-07] MEDS: THIAMINE HCL 100 MG TABLET (FP) PO SCH (22:14)
[2018-03-07] MEDS: QUEtiapine FUMARATE 100 MG TABLET (FP) PO SCH (22:14)
[2018-03-08] MEDS ORDERED: METHADONE HCL 40 MG DISPERSABLE TABLET ONE (02:38)
[2018-03-08] MEDS ORDERED: METHADONE HCL 10 MG TABLET ONE (02:38)
[2018-03-08] MEDS: CYCLOBENZAPRINE HCL 10 MG TABLET (FP) PO SCH ×3 (06:12→21:05)
[2018-03-08] MEDS: METHADONE 160 MG, METHADONE 10 MG PO SCH (06:12)
[2018-03-08] MEDS: sitaGLIPtin PHOSPHATE 50 MG TABLET PO SCH (06:12)
[2018-03-08] MEDS: busPIRone HCL 10 MG TABLET (FP) PO SCH ×3 (06:12→21:05)
[2018-03-08] MEDS: INSULIN SLIDING SCALE (NOVOLOG) 1 VIAL SQ SCH ×4 (06:15→21:06)
[2018-03-08 06:50] VITALS: TEMP 97.6
[2018-03-08] MEDS: FERROUS SO4 325 MG TABLET (FP) PO SCH ×2 (07:01→17:26)
[2018-03-08] MEDS: PRENATAL VITAMINS W/ FOLIC ACID TABLET (FP) PO SCH (09:49)
[2018-03-08] MEDS: NICOTINE 7 MG/24 HOURS TOPICAL PATCH TD SCH (09:49)
[2018-03-08] MEDS: ESCITALOPRAM OXALATE 20 MG TABLET (FP) PO SCH (09:49)
[2018-03-08] MEDS ORDERED: INSULIN (NOVOLOG) ASPART 100 UNITS/ML 10ML VIAL ONE (11:32)
--- NOTE | 2018-03-08 16:27 | PN ---
Psychiatric Progress Note Vital Signs: Vital Signs Period Temp Pulse Resp BP Sys/Rodriguez Pulse Ox Last 24 Hr 97.6 F 90 16- 158/97 Date of Session: 03/08/18 Chief Complaint:: Discharge Note HPI: Patient addressing Alcohol and Sedative Dependence comorbid with Opioid Dependence on Agonist Therapy, Nicotine Dependence, MDD and Posttraumatic Stress Disorder ROS: Anemia, IDDM, Neuropathy were medically managed Current Medications: Active Medications Generic Name Dose Route Start Last Admin Trade Name Freq PRN Reason Stop Dose Admin Acetaminophen 650 mg 02/17/18 18:59 Tylenol - PO Q4H PRN FEVER Al Hydroxide/Mg Hydroxide 30 ml 02/17/18 18:59 Mylanta Oral Suspension - PO Q6H PRN DYSPEPSIA Buspirone HCl 10 mg 02/18/18 14:00 03/08/18 13:11 Buspar - PO 10 mg TID DAYO Administration Cyclobenzaprine HCl 10 mg 02/18/18 14:00 03/08/18 13:11 Flexeril - PO 10 mg TID DAYO Administration Escitalopram Oxalate 20 mg 02/18/18 12:30 03/08/18 09:49 Lexapro - PO 20 mg DAILY DAYO Administration Eucalyptus/Menthol/Phenol/Sorbitol 1 each 02/17/18 18:59 Cepastat Lozenge - MM Q4H PRN SORE THROAT Ferrous Sulfate 325 mg 02/26/18 16:35 03/08/18 07:01 Feosol - PO 325 mg BIDWM DAYO Administration Guaifenesin 10 ml 02/17/18 18:59 Robitussin Dm - PO Q6H PRN COUGH Hydroxyzine Pamoate 50 mg 02/17/18 18:59 03/07/18 14:15 Vistaril - PO 50 mg Q4H PRN Administration AGITATION Ibuprofen 400 mg 02/17/18 18:59 Motrin - PO Q6H PRN Pain Level 4-6 Insulin Aspart 1 vial 03/03/18 22:00 03/08/18 11:31 Novolog Vial Sliding Scale - SQ 4 units ACHS DAYO Administration Protocol Insulin Detemir 10 units 02/25/18 22:00 03/07/18 22:13 Levemir Vial SQ 10 units HS DAYO Administration Loperamide HCl 4 mg 02/17/18 18:59 Imodium - PO Q6H PRN DIARRHEA Magnesium Citrate 300 ml 02/17/18 18:59 Citroma - PO Q48H PRN CONSTIPATION Magnesium Hydroxide 30 ml 02/17/18 18:59 Milk Of Magnesia - PO DAILY PRN CONSTIPATION Melatonin 5 mg 02/17/18 22:00 03/06/18 21:17 Melatonin PO 5 mg HS PRN Administration INSOMNIA Methadone HCl 160 mg/ 170 mg 03/05/18 06:00 03/08/18 06:12 Methadone HCl 10 mg PO 03/12/18 05:59 170 mg DAILY@0600 DAYO Administration Nicotine 7 mg 02/18/18 10:00 03/08/18 09:49 Nicoderm Patch - TD 7 mg DAILY DAYO Administration Nicotine Polacrilex 2 mg 02/17/18 18:59 Nicorette Gum - BUC Q2H PRN NICOTINE REPLACEMENT RX Multivit/Folic Acid/Iron 1 tab 02/18/18 10:00 03/08/18 09:49 Vitamins (Sjr) - PO 1 tab DAILY DAYO Administration Pseudoephedrine/Triprolidine 1 combo 02/17/18 18:59 Actifed - PO TID PRN NASAL CONGESTION Quetiapine Fumarate 100 mg 02/18/18 22:00 03/07/18 22:14 Seroquel - PO 100 mg HS DAYO Administration Sitagliptin Phosphate 50 mg 02/18/18 07:00 03/08/18 06:12 Januvia - PO 50 mg DAILY@0700 DAYO Administration Thiamine HCl 100 mg 02/17/18 22:00 03/07/18 22:14 Vitamin B1 - PO 100 mg HS DAYO Administration Current Side Effect: No Lab tests ordered: Yes Lab tests reviewed: Yes Provider note:: Patient will complete this p[mayank on 03/09/18. He has met his treament goals and will continue to address his issues in outpatient program at [facility]. 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 He responded well to Lexapro 20 mg po daily, Buspar 10 mg po TID and Seroquel 100 mg po HS. Scriptsfor 30 days supply of these medications will be electronically transmitted to [facility] at [address] [place] [id number]. He is stable for discharge on 03/09/18 Total face to face time:: 35 Mental Status Exam - Mental Status Exam Alert and Oriented to: Time, Place, Person Cognitive Function: Fair Patient Appearance: Well Groomed Mood: Hopeful, Euthymic Affect: Appropriate Patient Behavior: Cooperative Speech Pattern: Clear Voice Loudness: Normal Thought Process: Intact, Goal Oriented Thought Disorder: Not Present Hallucinations: Denies Suicidal Ideation: Denies Homicidal Ideation: Denies Insight/Judgement: Fair Sleep: Fair Appetite: Good Muscle strength/Tone: Normal Gait/Station: Normal Psychiatric Treatment Plan - Problem List (4) Nicotine dependence Qualifiers: Nicotine product type: cigarettes Substance use status: in withdrawal Qualified Code(s): F17.213 - Nicotine dependence, cigarettes, with withdrawal (8) Type II diabetes mellitus Qualifiers: Diabetes mellitus intermediate frame tender insulin use: unspecified long-term insulin use status Diabetes mellitus complication status: with unspecified complications Qualified Code(s): E11.8 - Type 2 diabetes mellitus with unspecified complications Initial treatment plan: Patient will be discharged tomorrow and referred to [facility] for outpatient treatment
[2018-03-08] MEDS: QUEtiapine FUMARATE 100 MG TABLET (FP) PO SCH (21:05)
[2018-03-08] MEDS: THIAMINE HCL 100 MG TABLET (FP) PO SCH (21:05)
[2018-03-08] MEDS: INSULIN (LEVEMIR) 100 UNITS/ML UNITS SQ SCH (21:05)
[2018-03-09] MEDS ORDERED: METHADONE HCL 40 MG DISPERSABLE TABLET ONE (05:16)
[2018-03-09] MEDS ORDERED: METHADONE HCL 10 MG TABLET ONE (05:16)
[2018-03-09] MEDS: METHADONE 160 MG, METHADONE 10 MG PO SCH (06:16)
[2018-03-09] MEDS: busPIRone HCL 10 MG TABLET (FP) PO SCH (06:17)
[2018-03-09] MEDS: CYCLOBENZAPRINE HCL 10 MG TABLET (FP) PO SCH (06:17)
[2018-03-09 06:58] VITALS: BP 137/76; PULSE 98
[2018-03-09] MEDS: sitaGLIPtin PHOSPHATE 50 MG TABLET PO SCH (07:16)
[2018-03-09] MEDS: INSULIN SLIDING SCALE (NOVOLOG) 1 VIAL SQ SCH (07:17)
[2018-03-09] MEDS: FERROUS SO4 325 MG TABLET (FP) PO SCH (07:17)
--- NOTE | 2018-03-09 09:35 | PN ---
[facility] Progress Note Note: PT COMPLETED REHAB AND DISCHARGING TODAY. ALERT O X 3. NO ACUTE DISTRESS. PT REPORTS HE HAS PRIMARY CARE AT [facility] ON [address] PMD DR[address] ISHAN MILAN. PT REPORTS HE RECEIVES ALL SERVICES UNDER ONE ROOF. PT REPORTS HE WILL WALK IN TOMORROW 03/10/18 FOR A FOLLOW UP WITH DR MILAN . PT REPORTS HE HAS OWN MEDS, BASSAGLAR AND JANUVIA AT HOME AND ALSO AT THE [facility] ON [address] [place] [address],[place] [id number] CONFIRMED BY THE PHARMACY STAFF. Vital Signs 03/09/18 03/09/18 03:30 06:56 Temperature 97.6 F Pulse Rate 98 H Respiratory 18 18 Rate Blood Pressure 137/76 NAD PLAN:FOLLOW UP WITH PMD AT YOUR CLINIC WITHIN ONE WEEK FOLLOW UP WITH AFTERCARE PLANNED
[2018-03-09] MEDS: ESCITALOPRAM OXALATE 20 MG TABLET (FP) PO SCH (09:53)
[2018-03-09] MEDS: PRENATAL VITAMINS W/ FOLIC ACID TABLET (FP) PO SCH (09:53)
[2018-03-09] MEDS: hydrOXYzine PAMOATE 50 MG CAPSULE (FP) PO PRN (09:54)
== END 2018-03-09 10:20 | disposition home or self-care (01) | DRG 895 ==
LOC: YASAS 17:51 → Y3W 17:55
PROVIDERS: ADMIT Psychiatry & Neurology Psychiatry; ATTEND Psychiatry & Neurology Psychiatry
PROC: HZ42ZZZ Group Counseling for Substance Abuse Treatment, Cognitive-Behavioral (ICD-10-PCS; principal; 2018-02-17)
DX: F10.20 Alcohol dependence, uncomplicated (principal); F11.20 Opioid dependence, uncomplicated; F13.20 Sedative, hypnotic or anxiolytic dependence, uncomplicated; F33.9 Major depressive disorder, recurrent, unspecified; F17.213 Nicotine dependence, cigarettes, with withdrawal; F43.10 Post-traumatic stress disorder, unspecified; D50.9 Iron deficiency anemia, unspecified; G62.9 Polyneuropathy, unspecified; E11.8 Type 2 diabetes mellitus with unspecified complications; Z79.4 Long term (current) use of insulin; R51 Headache; W07.XXXA Fall from chair, initial encounter; Y93.89 Activity, other specified; Y92.238 Other place in hospital as the place of occurrence of the external cause
CPT/HCPCS: 36415; 70450-TC; 81003; 81015; 82565; 82962; 84520; 85025; 87086; 93005; 93010; 99282-25